=== PATIENT | female | born 1955 | race Caucasian/White ===

== ENCOUNTER → 2018-01-31 10:27 | Outpatient (CLI) | payer OTHER, SELFPAY ==
--- NOTE | 2018-01-31 10:31 | US_ITS ---
STUDY: THYROID ULTRASOUND REASON FOR EXAM: Female, 62 years old. Nodules TECHNIQUE: Ultrasound evaluation of the thyroid was performed with real-time and static pickering-scale imaging. COMPARISON: 03/13/2017. FINDINGS: RIGHT LOBE: The right lobe of the thyroid gland measures 6.7 x 2.1 x 2.4 cm. There is a heterogeneous echotexture. There are numerous nodules that are grossly stable. Largest is 1.2 cm which is similar to prior exam. LEFT LOBE: The left lobe of the thyroid gland measures 6.8 x 2.4 x 2.6 cm. There is a heterogeneous echotexture. There are numerous nodules that are grossly stable. Largest is 1.4 cm which is similar to prior exam. ISTHMUS: The isthmus measures 8 mm . The regional lymph nodes are normal. US/Thyroid IMPRESSION: Diffusely enlarged and heterogeneous thyroid with numerous nodules consistent with relatively stable multinodular goiter. Electronically Signed: Shree Turner MD at 17:09 EDT , Service support ,
== END ==
PROVIDERS: Family Provider Nurse Practitioner; PCP Nurse Practitioner; Visit Provider Nurse Practitioner
DX: E04.1 Nontoxic single thyroid nodule (principal)
CPT/HCPCS: 76536

== ENCOUNTER → 2018-03-14 09:30 | Outpatient (CLI) | payer OTHER, SELFPAY ==
--- NOTE | 2018-03-14 09:31 | BD_ITS ---
STUDY: DUAL ENERGY X-RAY ABSORPTIOMETRY / DXA REASON FOR EXAM: Female, 62 years old. The patient is postmenopausal. Loss of height. TECHNIQUE: Bone Mineral Density (BMD) measurements of lumbar spine and bilateral hips were obtained. COMPARISON: Comparison is made with prior study dated February 01, 2010. FINDINGS: Lumbar Spine (L1-L4): g/cm2 (1.276) / T-score (0.9) / Z-score (2.4) Findings are suggestive of normal bone density with a low fracture risk. Left Femur Total: g/cm2 (1.040) / T-score (0.3) / Z-score (1.4) Left Femoral Neck: g/cm2 (1.023) / T-score (-0.1) / Z-score (1.3) Right Femur Total: g/cm2 (1.024) / T-score (0.1) / Z-score (1.2) Right Femoral Neck: g/cm2 (1.050) / T-score (0.1) / Z-score (1.5) The T-Scores on the most recent prior examination were: Lumbar Spine (L1-L4): There has been worsening of bone density since the previous examination. Left Femur Total: which represents a worsening of 7.9%. Right Femur Total: which represents a worsening of 6.9%. BD/Dexa Bone Density Study IMPRESSION: The patient is considered normal as outlined below according to World Ron[place] Organization (WHO) criteria with a low fracture risk. There has been worsening of bone density since the previous examination. Reference Information: The T-score is the number of standard deviations above or below the standard which is normal for young adults at their peak bone mineral density. The World Health Organization (WHO) interprets the T-scores as follows: Above -1 Normal bone density Between -1 and -2.5 Osteopenia Equal to / or below -2.5 Osteoporosis As a practical clinical guideline, osteopenia may be graded as follows: Mild -1 through -1.5 Moderate -1.6 through -2.0 Severe -2.1 through -2.4 The Z-score is the number of standard deviations above or below age-matched controls. A Z-score of less than -1.5 would be considered abnormal. References: 1. NIH Osteoporosis and Related Bone Diseases http://www.osteo.org 2. International Society for Clinical Densitometry http://www.iscd.org 3. National Osteoporosis Foundation http://www.nof.org Electronically Signed: Uriel Fox MD at 15:24 EDT Tel [phone], Service support ,
--- NOTE | 2018-03-14 09:32 | BI_ITS ---
MAMMOGRAPHY - BILATERAL SCREENING REASON FOR EXAM: Female, 62 years old. Routine annual screening examination. PERTINENT HISTORY: Non-contributory. TECHNIQUE: Digital bilateral breast laine (3D mammographic acquisition) in the CC and MLO projections. 2-D mediolateral oblique (MLO) and craniocaudad (CC) views of both breasts were obtained. CAD: Full Field Digital Mammography with Computer Added Detection was performed. COMPARISON: Comparison is made with prior study dated March 13, 2017 and March 08, 2016. FINDINGS: Breast Composition: There are scattered areas of fibroglandular density. There are no dominant masses or suspicious calcifications. No other significant abnormalities are identified. There has been no significant change since the prior study. BI/SCREENING MAMM (CAD), BILAT IMPRESSION: Stable bilateral screening mammogram. Yearly follow-up mammogram recommended. (A) ASSESSMENT CATEGORY: BIRADS Category 1: Negative. A letter regarding these results will be sent to the patient by the facility within 30 days. Approximately 10% of breast cancers are not detected by mammography. A normal mammogram should not delay biopsy of a clinically suspicious abnormality. [id number] Electronically Signed: Uriel Fox MD at 14:03 EDT Tel [phone], Service support ,
== END ==
PROVIDERS: Family Provider Nurse Practitioner; PCP Nurse Practitioner; Visit Provider Nurse Practitioner
DX: Z12.31 Encounter for screening mammogram for malignant neoplasm of breast (principal); Z78.0 Asymptomatic menopausal state
CPT/HCPCS: 77063; 77067; 77080

== ENCOUNTER 2018-07-15 10:39 | Observation (INO) | payer OTHER, SELFPAY ==
[2018-06-25 10:20] VITALS: BP 143/76; PULSE 60; RESP 16; TEMP 36.8; O2SAT 97; BMI 33.7
--- NOTE | 2018-06-25 10:37 | SDCEKG_ITS ---
Test Reason : Blood Pressure : / mmHG Vent. Rate : 062 BPM Atrial Rate : 062 BPM P-R Int : 170 ms QRS Dur : 092 ms QT Int : 420 ms P-R-T Axes : 039 -18 012 degrees QTc Int : 426 ms Normal sinus rhythm Minimal voltage criteria for LVH, may be normal variant Borderline ECG Confirmed by BASHIR MATIAS, JEANNETTE ([id number]), publications editor KATIE GUTIERRES ([id number]) on 06/28/2018 2:39:41 PM Referred By: Edy Hugo Confirmed By:JEANNETTE CAMEJO MD
[2018-06-25 12:41] LABS: Absolute Lymphocyte Count 1.63 X10^3/ul (0.83-4.51); Absolute Neutrophil Count 2.7 X10^3/uL (2.0-7.7); Basophil# 0.03 X10^3/uL; Basophil% 0.6 % (0-1); Eosinophil# 0.06 X10^3/uL; Eosinophils% 1.2 % (0-5); Hematocrit 43.3 % (37-47); Hemoglobin 14.2 g/dl (12.0-15.0); Lymphocyte # 1.63 X10^3/ul (4.0); Lymphocyte % 32.9 % (19-41); Mean Corp Hgb Conc 32.8 g/gl (32-36); Mean Corpuscular Hgb 31.7 pg (27.0-32.0); Mean Corpuscular Volume 96.7 fL (81-99); Mean Platelet Vol. 9.9 fl (6.2-12.0); Monocyte# 0.54 X10^3/uL; Monocyte% 10.9 % (0-10); Neutrophil % 54.4 % (47-70); Platelet Count 177 K/mm3 (150-450); RBC Distribution Width CV 13.2 % (11.6-14.6); RBC Distribution Width SD 46.3 fl (35.1-43.9); Red Blood Count 4.48 M/mm3 (4.2-5.4)
[2018-06-25 12:46] LABS: POSITIVE COUNT NO; POSITIVE DIFFERENTIAL NO; POSITIVE MORPHOLOGY NO
[2018-06-25 13:23] LABS: Anion Gap 8 (5-15); BUN 13 mg/dL (7-18); BUN/Creat Ratio 13.8 RATIO (10-20); Calcium,Total 9.6 mg/dL (8.5-10.1); Chloride 105 mmol/L (98-107); Creatinine, Serum 0.94 mg/dL (0.55-1.02); EST Glomerular Filtration Rate 64 mL/min (>60); Est Glom Filt Rate - Afr Amer 77 mL/min (>60); Estimated Creatinine Clearance 54.41 ml/min; Glucose 85 mg/dL (74-106); Potassium 4.3 mmol/L (3.5-5.1); Sodium Level 143 mmol/L (136-145); Thyroid Stim Hormone (TSH) 1.72 uIU/mL (0.358-3.74)
[2018-07-15] VITALS (9 sets, daily range): BP systolic 98–134; BP diastolic 49–77; PULSE 59–77; RESP 14–18; TEMP 36.2–36.9; O2SAT 95–98; BMI 33.7; BMI 33.6
--- NOTE | 2018-07-15 | KNEE_PTH ---
PATIENT: CHANDRIKA VEGA LOC: [facility] U#:[id number] AGE/SX: 63/F ROOM: [facility]315 RE07/15/[address]: Dr. Edy Hugo DO : 1955 BED: 1 DIS: 07/16/2018 SPEC #: [id number] RECD: 07/15/18 13:28 STATUS: KARI REBrandyn #: [id number] NICOLA: 07/15/18 00:[address]: Edy Hugo DEPT: SURGICAL PATHOLOGY RECD BY: Forest Phillips ENTERED: 07/15/18 13:29 SP TYPE: TOTAL KNEE OTHR DR: Juanis Garnett, TELEVISION NEWS VIDEO EDITOR-C Tissues: Knee, NOS Procedures: Decalcification bone/plaque Surgery Specimen Level IV HEADER OPERATION: Right total knee replacement, left intra-articular knee injection PRE-OP DIAGNOSIS: Unilateral primary osteoarthritis right knee TISSUE SUBMITTED: Right knee bone MICROSCOPIC DIAGNOSIS Bone and soft tissue, right knee, total knee replacement/resection: Pieces of bone with degenerative osteoarthritic changes. Fibroadipose tissue, fibroconnective tissue and reactive synovial tissue. SJ:blaise 07/17/18 MICROSCOPIC DESCRIPTION Slides are reviewed. GROSS DESCRIPTION Received is one container designated bone and soft tissue right knee. The specimen consists of multiple fragments of gee-yellow bone measuring in aggregate 12 x 10.5 x 2.5 cm. Also in the specimen container are multiple fragments of yellow-white soft tissue measuring in aggregate 9 x 8 x 2 cm. A number of bony fragments contain articular surfaces consistent with tibial plateau and femoral condyle and displaying prominent osteophyte formation, eburnation, and bone erosion. Global Manager sections are submitted in two cassettes as follows: 1 - soft tissue, 2 - bone after decalcification. / AM:blaise 07/15/18 TC:5 CPT: 10209, 24762
[2018-07-15] MEDS: Acetaminophen 500 MG Tablet 1000 MG PO ×3 (06:11→21:46)
[2018-07-15] MEDS: oxyCODONE HCl Cr 10 MG Tablet PO (06:11)
[2018-07-15] MEDS: Celecoxib 200 MG Capsule 400 MG PO (06:11)
[2018-07-15] MEDS: Lactated Ringers 1,000 ML 999 ML IV (06:40)
[2018-07-15] MEDS: Cefazolin 2 GM in 0.9% Normal Saline 100 ML IV (07:15)
--- NOTE | 2018-07-15 08:37 | OP.PN_ITS ---
Immediate Post-Op Note Date of Procedure: 07/15/18 Primary Surgeon/Physician: Edy Hugo district commercial superintendent: Malik Vega Pre-Operative Diagnosis: OA right knee Post-Operative Diagnosis: same Surgery/Procedure Performed:: right TKR Description of Surgical Findings:: see op note Estimated Blood Loss: 25cc Specimen's removed: bone Type of Anesthesia:: Spinal/Supplemental ASA Class: ASA2 Mod Systematic Disease - Admit VTE Documentation VTE Present on Admission: No VTE Mechan Device Prophylaxis: SCD's, Thigh High MADELAINE Hose VTE Pharm Prophylaxis ordered?: Yes
--- NOTE | 2018-07-15 08:38 | PCM.OP.BLANK ---
Operative Report Date of Procedure: 07/15/18 Primary Surgeon/Physician: Edy Hugo nocturnist: Malik Vega PA-C nocturnist: Pre-Operative Diagnosis: OA right knee Post-Operative Diagnosis: same Surgery/Procedure Performed: Right TKR Estimated Blood Loss: 25cc Specimen's Removed: bone Type of Anesthesia: spinal ASA Class: 2 Implants: [Mansi Triathlon size 4 femur, size 4 tibia, 9 mm PS polyethylene spacer, 35 mm patella ] Indications: Patient has severe end-stage osteoarthritis diagnosed via x-rays in the knee. They have failed all forms of conservative measures including activity modification, injections, anti-inflammatories, use of assistive device. The patient has pain that affects on a daily basis and prevents him from doing things that they enjoyed. They have elected to undergo the above procedure. The risks of the procedure were discussed at length and their questions were answered. Procedure Description: The patient was greeted in the preoperative area. The [right ] knee was then marked with a surgical marker. Patient was then taken to or Suite 2. They were administered a dose of antibiotics as well as tranexamic acid. Once adequate anesthesia was obtained and airway was secured to placed in supine position on the operating room table. A well-padded tourniquet was placed on the affected extremity. Leg was then prepped and draped in the usual sterile fashion from the knee down. Ioban was used on the skin. Surgical timeout was then performed and confirmed with all present. Six-inch Esmarch was used to examine the limb and tourniquet was then inflated to 250 mmHg. A longitudinal incision was then planned and carried out in the anterior aspect of the knee. The dissection was then carried the length of the incision the extensor mechanism was identified. Standard medial parapatellar arthrotomy was then performed revealing severe eburnation of bone and periarticular osteophytes. There is complete loss of cartilage especially in the medial compartment with varus alignment. Anterior fat pad was removed for visualization purposes and the anterior medial aspect of the tibia was skeletonized for exposure to the knee. The knee was then flexed the patella was inverted. Opening reamer was then used in the femur approximately 1 cm anterior to the attachment of the PCL. The intramedullary valgus wand was then placed in the femur set at 5? of valgus. The distal femoral cutting jig was then applied to the femur with anticipated resection of approximately 8 mm. This was then made with a oscillating saw. The sizing guide was then placed referencing off the posterior condyles and also reference off the epicondylar axis. This was measured and the appropriate size 4-in-1 cutting jig was then applied to the distal femur. Anterior posterior cuts were made followed by the anterior and posterior chamfer cuts. These bony pieces and fragments were removed and placed on the back table. Posterior retractor was then utilized and the tibia was subluxed anteriorly. Extramedullary tibial alignment jig was then applied to the tibia referencing off the medial one third of the tibial tubercle the anterior tibial spine the middle aspect of the tibiotalar joint. Also reference off patient's [place] band slope. The tibial cutting jig was then pinned with anticipated resection of 2 mm off of the deficient medial tibial condyle. This cut was made with the oscillating saw. Once this was complete a laminar environmental technical officer was utilized in both medial lateral meniscus were removed and a posterior capsular osteophytes were also removed. Posterior capsule release was performed in the posterior capsule as well as the geniculate arteries are treated with the aqua Rubén. The tibia was incised and the appropriate sized tibial tray was then pinned. The femoral box cutting jig was then applied to the femur and the box was prepared removing a portion of the intercondylar notch. The femoral trial was then placed and the knee was trialed. Full flexion-extension were easily achieved. The knee seemed to balance quite nicely. Any remaining osteophytes were removed at this time. Once this was complete the patella was everted and the Norberto patella reaming device was then utilized the patella was then placed in the appropriate jig and reamer was then used to remove approximately 9 mm of the undersurface of the patella. A soft tissue remaining was in the way was removed and patella trial was then placed listed maintain excellent tracking using the no thumbs technique. The tibial tray at this point was punched to accommodate the fins of the final implant. At this point cement was mixed on the back table. The trial components were removed and the knee was copiously irrigated. Did use a cocktail of injection for postoperative pain control. The final components were then cemented in the standard fashion and excess cement was removed with cement removal tools and patellar clamp is placed in the patella. As the cement had cured in full extension tourniquet was deflated and hemostasis was perfect with Bovie cautery as well as the aqua Manus. Needle is once again trialed with different size polyethylenes to ensure the full range of motion was achieved as well as excellent balancing ligamentously was achieved. At this point the knee was copiously irrigated. Final implant was then inserted locking mechanism was engaged and confirmed to be locked. The arthrotomy was then closed with #1 Vicryl aggravate type fashion interrupted. Subcutaneous tissue was closed with 0 Vicryl and surgical erna were placed in the skin. A occlusive silver impregnated dressing was then applied followed by well-padded sterile dressing secured with an Romario wrap. The patient was taken to the PACU in stable condition. No complications known at this time. Postoperatively we will maintain standard total knee postoperative protocol. The use of the physician assistant drafter was integral during this procedure. They assisted with positioning placement of the tourniquet retracting closure and placement of the dressing. The procedure would have been much more difficult without their expertise and assistance
[2018-07-15] MEDS: Betamethasone/Betamethasone 30 MG/5 ML Vial (08:39)
--- NOTE | 2018-07-15 08:42 | OP.PCM_ITS ---
Operative Report Date of Procedure: 07/15/18 Primary Surgeon/Physician: Edy Hugo vice president of recruiting: Malik Vega PA-C vice president of recruiting: Pre-Operative Diagnosis: OA right knee Post-Operative Diagnosis: same Surgery/Procedure Performed: Right TKR Estimated Blood Loss: 25cc Specimen's Removed: bone Type of Anesthesia: spinal ASA Class: 2 Implants: [Mansi Triathlon size 4 femur, size 4 tibia, 9 mm PS polyethylene spacer, 35 mm patella ] Indications: Patient has severe end-stage osteoarthritis diagnosed via x-rays in the knee. They have failed all forms of conservative measures including activity modification, injections, anti-inflammatories, use of assistive device. The patient has pain that affects on a daily basis and prevents him from doing things that they enjoyed. They have elected to undergo the above procedure. The risks of the procedure were discussed at length and their questions were answered. Procedure Description: The patient was greeted in the preoperative area. The [right ] knee was then marked with a surgical marker. Patient was then taken to or Suite 2. They were administered a dose of antibiotics as well as tranexamic acid. Once adequate anesthesia was obtained and airway was secured to placed in supine position on the operating room table. A well-padded tourniquet was placed on the affected extremity. Leg was then prepped and draped in the usual sterile fashion from the knee down. Ioban was used on the skin. Surgical timeout was then performed and confirmed with all present. Six-inch Esmarch was used to examine the limb and tourniquet was then inflated to 250 mmHg. A longitudinal incision was then planned and carried out in the anterior aspect of the knee. The dissection was then carried the length of the incision the extensor mechanism was identified. Standard medial parapatellar arthrotomy was then performed revealing severe eburnation of bone and periarticular osteophytes. There is complete loss of cartilage especially in the medial compartment with varus alignment. Anterior fat pad was removed for visualization purposes and the anterior medial aspect of the tibia was skeletonized for exposure to the knee. The knee was then flexed the patella was inverted. Opening reamer was then used in the femur approximately 1 cm anterior to the attachment of the PCL. The intramedullary valgus wand was then placed in the femur set at 5? of valgus. The distal femoral cutting jig was then applied to the femur with anticipated resection of approximately 8 mm. This was then made with a oscillating saw. The sizing guide was then placed referencing off the posterior condyles and also reference off the epicondylar axis. This was measured and the appropriate size 4-in-1 cutting jig was then applied to the distal femur. Anterior posterior cuts were made followed by the anterior and posterior chamfer cuts. These bony pieces and fragments were removed and placed on the back table. Posterior retractor was then utilized and the tibia was subluxed anteriorly. Extramedullary tibial alignment jig was then applied to the tibia referencing off the medial one third of the tibial tubercle the anterior tibial spine the middle aspect of the tibiotalar joint. Also reference off patient's [place] slope. The tibial cutting jig was then pinned with anticipated resection of 2 mm off of the deficient medial tibial condyle. This cut was made with the oscillating saw. Once this was complete a laminar consultant luxury and auto. vice president jaguar brand (ex ) was utilized in both medial lateral meniscus were removed and a posterior capsular osteophytes were also removed. Posterior capsule release was performed in the posterior capsule as well as the geniculate arteries are treated with the aqua Rubén. The tibia was incised and the appropriate sized tibial tray was then pinned. The femoral box cutting jig was then applied to the femur and the box was prepared removing a portion of the intercondylar notch. The femoral trial was then placed and the knee was trialed. Full flexion-extension were easily achieved. The knee seemed to balance quite nicely. Any remaining osteophytes were removed at this time. Once this was complete the patella was everted and the Norberto patella reaming device was then utilized the patella was then placed in the appropriate jig and reamer was then used to remove approximately 9 mm of the undersurface of the patella. A soft tissue remaining was in the way was removed and patella trial was then placed listed maintain excellent tracking using the no thumbs technique. The tibial tray at this point was punched to accommodate the fins of the final implant. At this point cement was mixed on the back table. The trial components were removed and the knee was copiously irrigated. Did use a cocktail of injection for postoperative pain control. The final components were then cemented in the standard fashion and excess cement was removed with cement removal tools and patellar clamp is placed in the patella. As the cement had cured in full extension tourniquet was deflated and hemostasis was perfect with Bovie cautery as well as the aqua Manus. Needle is once again trialed with different size polyethylenes to ensure the full range of motion was achieved as well as excellent balancing ligamentously was achieved. At this point the knee was copiously irrigated. Final implant was then inserted locking mechanism was engaged and confirmed to be locked. The arthrotomy was then closed with #1 Vicryl aggravate type fashion interrupted. Subcutaneous tissue was closed with 0 Vicryl and surgical erna were placed in the skin. A occlusive silver impregnated dressing was then applied followed by well-padded sterile dressing secured with an Romario wrap. The patient was taken to the PACU in stable condition. No complications known at this time. Postoperatively we will maintain standard total knee postoperative protocol. The use of the physician medical claims assistant was integral during this procedure. They assisted with positioning placement of the tourniquet retracting closure and placement of the dressing. The procedure would have been much more difficult without their expertise and assistance
[2018-07-15] MEDS: Senna/Docusate Sodium 1 Tablet 2 TABLET PO ×2 (14:29→21:47)
[2018-07-15] MEDS: Cefazolin 1 GM/50 ML BAG IV ×2 (14:39→22:27)
[2018-07-15] MEDS: Aspirin 325 MG Tablet PO (16:47)
[2018-07-15] MEDS: Atorvastatin Calcium 10 MG Tablet PO (21:46)
[2018-07-15] MEDS: Levothyroxine 100 MCG Tablet PO (21:46)
[2018-07-16 02:22] VITALS: BP 105/61; PULSE 61; RESP 16; TEMP 36.7; O2SAT 94
[2018-07-16] MEDS: Acetaminophen 500 MG Tablet 1000 MG PO ×2 (05:47→14:01)
[2018-07-16 06:01] LABS: Hematocrit 36.6 % (37-47); Hemoglobin 12.5 g/dl (12.0-15.0); Mean Corp Hgb Conc 34.2 g/gl (32-36); Mean Corpuscular Hgb 32.4 pg (27.0-32.0); Mean Corpuscular Volume 94.8 fL (81-99); Mean Platelet Vol. 9.6 fl (6.2-12.0); Platelet Count 165 K/mm3 (150-450); RBC Distribution Width CV 12.9 % (11.6-14.6); RBC Distribution Width SD 43.3 fl (35.1-43.9); Red Blood Count 3.86 M/mm3 (4.2-5.4); White Blood Count 11.3 K/mm3 (4.4-11.0)
[2018-07-16 06:08] LABS: Scan Indicated on CBC? Y/N NO
[2018-07-16 06:10] LABS: Anion Gap 8 (5-15); BUN 13 mg/dL (7-18); BUN/Creat Ratio 14.7 RATIO (10-20); Calcium,Total 8.6 mg/dL (8.5-10.1); Chloride 110 mmol/L (98-107); Creatinine, Serum 0.89 mg/dL (0.55-1.02); EST Glomerular Filtration Rate 68 mL/min (>60); Est Glom Filt Rate - Afr Amer 83 mL/min (>60); Estimated Creatinine Clearance 57.46 ml/min; Glucose 139 mg/dL (74-106); Sodium Level 142 mmol/L (136-145)
--- NOTE | 2018-07-16 07:47 | PN.ORTHO_ITS ---
Subjective: Patient sitting at bedside eating breakfast. Patient's pain is well managed. Patient denies chest pain, shortness breath, calf pain, nausea vomiting. Patient states ready for discharge home Objective: Dressings clean dry intact. Negative signs or symptoms of DVT. Vital sign labs within normal limits. Patient is afebrile neurovascular is otherwise intact. No respiratory distress, speaking in full sentences. - Physical Exam General: Alert, Oriented x3, Cooperative HEENT: PERRLA Oral: Moist Mucosa Neurological: Cranial nerves II-XII grossly intact Psych/Mental Status: Normal Affect, Alert and oriented to time, place, person, mood and affect Vital Signs Temp Pulse Resp BP Pulse Ox 98.1 F 61 16 105/61 94 07/16/18 02:22 07/16/18 02:22 07/16/18 02:22 07/16/18 02:22 07/16/18 02:22 Oxygen Delivery Method Room Air Weight: 91.6 kg Body Mass Index (BMI) 33.6 Intake and Output for Last 24 Hours 07/14/18 07/15/18 07/16/18 23:59 23:59 23:59 Intake Total 3645 / 3645 667 / 667 Balance 3645 / 3645 667 / 667 Laboratory Tests Past 24 Hrs 07/16/18 07/16/18 05:30 05:30 WBC 11.3 H RBC 3.86 L Hgb 12.5 Hct 36.6 L MCV 94.8 MCH 32.4 H MCHC 34.2 RDW 12.9 RDW Differential 43.3 Plt Count 165 MPV 9.6 Sodium 142 Potassium 4.0 Chloride 110 H Carbon Dioxide 24.0 Anion Gap 8 BUN 13 Creatinine 0.89 Estim Creat Clear Calc 57.46 Est GFR (MDRD) Af Amer 83 Est GFR (MDRD) Non-Af 68 BUN/Creatinine Ratio 14.7 Glucose 139 H Calcium 8.6 Medical Necessity - Tobacco Use Smoking Status: Never smoker Assessment/Plan Status post right total knee Plan 1. Continue all pain medications as prescribed 2. Continue physical therapy today weightbearing as tolerated with walker. 3. Aspirin 325 mg 1 p.o. every 12 hours times 30 days for postop DVT prophylaxis 4. Encourage incentive spirometry 5. Follow-up as scheduled, see pink sheet 6. Continue physical therapy upon discharge, at [facility] [place] 7. Discharge home today after p.m. therapy
--- NOTE | 2018-07-16 07:51 | DCINST_ITS ---
Discharge Diet: No Restrictions Discharge Activity: May Not Drive, May Shower, Use Walker May shower in (days): 2 Ice area for (Minutes): 20 - each hour while awake. Weight Bearing Status: Weight bearing as tolerated Elevate: Operative Extremity Additional Activity Instructions:: Wear elastic stockings for 2 weeks after your surgery. Call your doctor if your incision/area has: Continuous Slow Oozing, Sudden Increased Bleeding, Increased Pain/ Swelling, Increased Redness, Foul Smelling Discharge Call your doctor if you observe: Fever of 101 or Higher, Coldness, Increased Pain - in extremity, Numbness or Tingling, Change in Color, Calf discomfort, Uncontrolled pain Change Dressing in (Days):: 0 - and daily as needed. Remove Dressing in (days):: 8 Cleanse incision/area with: Soap & Water Allergies/Adverse Reactions: Allergies No Known Allergies Allergy (Verified 06/25/18 10:13) Medications to take at Discharge Ascorbic Acid [Vitamin C] 500 mg PO DAILY 06/25/18 Calcium Carbonate/Vitamin D3 [Calcium 600-Vit D3 200 Tablet] 1 each PO DAILY 06/25/18 Cholecalciferol (VIT D3) [Vitamin D3] 3 tab PO DAILY 06/25/18 Levothyroxine Sodium [Synthroid] 100 mcg PO QHS 06/25/18 Multivit-Min/FA/Lycopen/Lutein [Centrum Silver Tablet] 1 each PO DAILY 06/25/18 [place]-3 Fatty Acids/Fish Oil [[place] 3 1,000 mg Softgel] 1 each PO DAILY 06/25/18 Simvastatin [Zocor] 20 mg PO QHS 06/25/18 Vitamin E 400 unit PO DAILY 06/25/18 Acetaminophen [Tylenol] 1,000 mg PO Q8 #90 tab 07/16/18 Aspirin 325 mg PO BIDCM #60 tab 07/16/18 Oxycodone [Oxyir] 5 - 10 mg PO Q4H PRN PRN 7 Days #90 tab 07/16/18 The following prescriptions were given: Oxycodone [Oxyir] 5 - 10 mg PO Q4H PRN PRN 7 Days #90 tab PRN Reason: Mod-Severe Pain (4-10/10) Acetaminophen [Tylenol] 1,000 mg PO Q8 #90 tab Aspirin 325 mg PO BIDCM #60 tab Primary Care Physician: Juanis Garnett NP-C [Primary Care Provider] - Test Results: Test results from this visit will be discussed in further detail at your follow- up appointment, if applicable. Please Follow Up With: Edy Hugo, When: as scheuled (see pink sheet)
[2018-07-16] MEDS: Senna/Docusate Sodium 1 Tablet 2 TABLET PO (08:14)
[2018-07-16] MEDS: Aspirin 325 MG Tablet PO (08:14)
[2018-07-16 08:29] VITALS: BP 122/60; PULSE 62; RESP 16; TEMP 36.7; O2SAT 96
--- NOTE | 2018-07-16 10:15 | CASEMGMT ---
RN JEFFERY Face to Face with patient for initial transition planning/care coordination assessment. RN JEFFERY introduced self and role at [facility]. Patient lying in bed, alert and oriented. Patient willing to participate in assessment and is able to answer all questions appropriately. Care providers, pharmacy, and demographics verified. Patient wishes to discharge home, and is setup with [facility] for outpatient therapy with providing transportation. Patient states she has no further needs or concerns at this time. CM to follow for discharge planning needs that may arise. PCP: Juanis Garnett [employer] Specialists: None Preferred Pharmacy: [facility] Insurance: MMO Prescription Benefit: MMO Living Will/HPOA: Yes, Sunday Veloz LNOK: Living Arrangements: Patient lives with in 1 story home with 2 steps to enter the home. Transportation: DME/HHC: Patient has raised toilet seat and walker at home. Disposition Plan: Patient to discharge home with outpatient therapy, family support, and follow-up plans in place. Araseli MARQUEZ, RN, CM
[2018-07-16] MEDS: oxyCODONE 5 MG Tablet PO (14:01)
[2018-07-16 14:07] VITALS: BP 139/67; PULSE 60; RESP 16; TEMP 36.5
--- OUTSIDE RECORDS SUMMARY | 2018-09-07 03:44 | XMS RPT_ITS ---
:1955 Author Organization OHIP Care Team Providers Name Role Phone Mariola Juanis Attending Unavailable Juanis Garnett Referring Unavailable Juanis Garnett Primary Care Unavailable Juanis Garnett Attending Unavailable Juanis Garnett Primary Care Unavailable Kwame Ross Attending Unavailable Juanis Garnett Referring Unavailable Edy Hugo Admitting Unavailable Edy Hugo Attending Unavailable Juanis Garnett Primary Care Unavailable Edy Hugo Referring Unavailable Irineo Britt Attending Unavailable Edy Hugo Referring Unavailable PROBLEMS PROBLEMS DATE TYPE CONDITION / CODE ATTENDING STATUS SOURCE 07/16/2018 Unknown G89.18 - Other acute Edy Hugo Active [place] postprocedural pain Community / G89.18(ICD-10) Hospital Repository 07/03/2018 Unknown Z01.810 - Encounter Irineo Britt Active [place] for preprocedural [facility] cardiovascular Hospital examination / Repository Z01.810(ICD-10) 03/14/2018 Unknown Z12.31 - Encounter Juanis Garnett Active [place] for screening [facility] mammogram for Hospital malignant neoplasm Repository of breast / Z12.31(ICD-10) 03/14/2018 Unknown Z78.0 - Asymptomatic Juanis Garnett Active [place] menopausal state / Community Z78.0(ICD-10) Hospital Repository 01/31/2018 Unknown E04.1 - Nontoxic Juanis Garnett Active [place] single thyroid [facility] nodule / Hospital E04.1(ICD-10) Repository PROCEDURES PROCEDURES No Procedure Records FoundRESULTS RESULTS DISCHARGE INSTRUCTION Observed: 07/16/2018 Status: F Source: [place] 7:51 AM [facility] REPOSITORY [facility] Medical Records Department [address] [place] [address] Instructions for Home/Discharge Instructions 07/16/18 0750 MR#: [id number] Acct: [id number] Name: EBONIE VEGA Rep #: [id number] : 1955 63 From: Malik Vega PA-C PCP: Juanis Garnett NP Status: ADM SHARAD Discharge Diet: No Restrictions Discharge Activity: May Not Drive, May Shower, Use Walker May shower in (days): 2 Ice area for (Minutes): 20 - each hour while awake. Weight Bearing Status: Weight bearing as tolerated Elevate: Operative Extremity Additional Activity Instructions:: Wear elastic stockings for 2 weeks after your surgery. Call your doctor if your incision/area has: Continuous Slow Oozing, Sudden Increased Bleeding, Increased Pain/ Swelling, Increased Redness, Foul Smelling Discharge Call your doctor if you observe: Fever of 101 or Higher, Coldness, Increased Pain - in extremity, Numbness or Tingling, Change in Color, Calf discomfort, Uncontrolled pain Change Dressing in (Days):: 0 - and daily as needed. Remove Dressing in (days):: 8 Cleanse incision/area with: Soap AND Water Allergies/Adverse Reactions: Allergies No Known Allergies Allergy (Verified 06/25/18 10:13) Medications to take at Discharge Ascorbic Acid [Vitamin C] 500 mg PO DAILY 06/25/18 Calcium Carbonate/Vitamin D3 [Calcium 600-Vit D3 200 Tablet] 1 each PO DAILY 06/25/18 Cholecalciferol (VIT D3) [Vitamin D3] 3 tab PO DAILY 06/25/18 Levothyroxine Sodium [Synthroid] 100 mcg PO QHS 06/25/18 Multivit-Min/FA/Lycopen/Lutein [Centrum Silver Tablet] 1 each PO DAILY 06/25/18 Hebron-3 Fatty Acids/Fish Oil [Hebron 3 1,000 mg Softgel] 1 each PO DAILY 06/25/18 Simvastatin [Zocor] 20 mg PO QHS 06/25/18 Vitamin E 400 unit PO DAILY 06/25/18 Acetaminophen [Tylenol] 1,000 mg PO Q8 #90 tab 07/16/18 Aspirin 325 mg PO BIDCM #60 tab 07/16/18 Oxycodone [Oxyir] 5 - 10 mg PO Q4H PRN PRN 7 Days #90 tab 07/16/18 The following prescriptions were given: Oxycodone [Oxyir] 5 - 10 mg PO Q4H PRN PRN 7 Days #90 tab PRN Reason: Mod-Severe Pain (4-05/22) Acetaminophen [Tylenol] 1,000 mg PO Q8 #90 tab Aspirin 325 mg PO BIDCM #60 tab Primary Care Physician: Juanis Garnett NP-C [Primary Care Provider] - Test Results: Test results from this visit will be discussed in further detail at your follow-up appointment, if applicable. Please Follow Up With: Edy Hugo DO When: as scheuled (see pink sheet) 07/16/18 0751 <Electronically signed by Malik Vega PA-C> Date Malik Vega PA-C CC: Juanis Garnett NP CBC-COMPLETE BLOOD CNT Collected: 07/16/2018 Status: F Source: [place] NO DIFF 5:30 AM [facility] REPOSITORY TYPE CODE TESTS RESULT OUT OF RANGE REFERENCE UNITS LAB L100.1000 4.4-11.0 K/mm3 High WBC 11.3 LAB L100.1200 4.2-5.4 M/mm3 Low RBC 3.86 LAB L100.1300 12.0-15.0 g/dl Normal HGB 12.5 LAB L100.1400 37-47 % Low HCT 36.6 LAB L100.1500 81-99 fL Normal MCV 94.8 LAB L100.1600 27.0-32.0 pg High MCH 32.4 LAB L100.1700 32-36 g/gl Normal MCHC 34.2 LAB L100.1810 11.6-14.6 % Normal RDW CV 12.9 LAB L100.1820 35.1-43.9 fl Normal RDW SD 43.3 LAB L100.1900 150-450 K/mm3 Normal PLT 165 LAB L100.2000 6.2-12.0 fl Normal MPV 9.6 Performed By: #### L100.0500 #### [facility] [address] [place], [address] BASIC METABOLIC Collected: 07/16/2018 Status: F Source: [place] PROFILE (BMP) 5:30 AM [facility] REPOSITORY TYPE CODE TESTS RESULT OUT OF RANGE REFERENCE UNITS LAB L501.0100 74-106 mg/dL High GLU 139 Result Comment: Fasting Glucose result greater than or equal to 126 mg/dL suggests DIABETES MELLITUS per A.D.A. criteria. Please note revised GLUCOSE reference range effective 2017. LAB L501.1000 7-18 mg/dL Normal BUN 13 LAB L501.1100 0.55-1.02 mg/dL Normal CREAT,SERUM 0.89 Result Comment: The validity of the calculated GFR AND GFRAA in patients over 70 years has not been determined. Clinical correlation is essential. LAB L501.1110 >60 mL/min Normal EST GFR 68 Result Comment: Non- GFR Calc LAB L501.1115 >60 mL/min Normal EST GFR - AA 83 Result Comment: GFR Calc LAB L501.1255 ml/min Normal Estimated CRCL 57.46 LAB L501.1300 10-20 RATIO Normal BUN/CRE 14.7 LAB L501.2200 8.5-10 mg/dL Normal .1 CA 8.6 LAB L501.5300 136-14 mmol/L Normal 5 NA 142 LAB L501.5600 3.5-5. mmol/L Normal 1 K 4.0 LAB L501.5900 98-107 mmol/L High CL 110 LAB L501.6100 21.0-3 mmol/L Normal 2.0 CO2 24.0 LAB L501.6200 5-15 Normal GAP 8 Performed By: #### L500.2500 #### [facility] [address] [place], [address] OPERATIVE REPORT Observed: 07/15/2018 Status: F Source: [place] 8:42 AM [facility] REPOSITORY [facility] Medical Records Department [address] [place] [address] Operative Report 07/15/18 0838 MR#: [id number] Acct: [id number] Name: EBONIE VEGA Rep #: [id number] : 1955 63 From: Edy Hugo DO PCP: Juanis Garnett NP Status: REG [id number] Oper[facility] Report Date of Procedure: 07/15/18 Primary Surgeon/Physician: Edy Hugo pan shaker: Malik Vega PA-C pan shaker: Pre-Operative Diagnosis: OA right knee Post-Operative Diagnosis: same Surgery/Procedure Performed: Right TKR Estimated Blood Loss: 25cc Specimen's Removed: bone Type of Anesthesia: spinal ASA Class: 2 Implants: [Mansi Triathlon size 4 femur, size 4 tibia, 9 mm PS polyethylene spacer, 35 mm patella ] Indications: Patient has severe end-stage osteoarthritis diagnosed via x-rays in the knee. They have failed all forms of conservative measures including activity modification, injections, anti-inflammatories, use of assistive device. The patient has pain that affects on a daily basis and prevents him from doing things that they enjoyed. They have elected to undergo the above procedure. The risks of the procedure were discussed at length and their questions were answered. Procedure Description: The patient was greeted in the preoperative area. The [right ] knee was then marked with a surgical marker. Patient was then taken to or [address]. They were administered a dose of antibiotics as well as tranexamic acid. Once adequate anesthesia was obtained and airway was secured to placed in supine position on the operating room table. A well-padded tourniquet was placed on the affected extremity. Leg was then prepped and draped in the usual sterile fashion from the knee down. Ioban was used on the skin. Surgical timeout was then performed and confirmed with all present. Six-inch Esmarch was used to examine the limb and tourniquet was then inflated to 250 mmHg. A longitudinal incision was then planned and carried out in the anterior aspect of the knee. The dissection was then carried the length of the incision the extensor mechanism was identified. Standard medial parapatellar arthrotomy was then performed revealing severe eburnation of bone and periarticular osteophytes. There is complete loss of cartilage especially in the medial compartment with varus alignment. Anterior fat pad was removed for visualization purposes and the anterior medial aspect of the tibia was skeletonized for exposure to the knee. The knee was then flexed the patella was inverted. Opening reamer was then used in the femur approximately 1 cm anterior to the attachment of the PCL. The intramedullary valgus wand was then placed in the femur set at 5 of valgus. The distal femoral cutting jig was then applied to the femur with anticipated resection of approximately 8 mm. This was then made with a oscillating saw. The sizing guide was then placed referencing off the posterior condyles and also reference off the epicondylar axis. This was measured and the appropriate size 4-in-1 cutting jig was then applied to the distal femur. Anterior posterior cuts were made followed by the anterior and posterior chamfer cuts. These bony pieces and fragments were removed and placed on the back table. Posterior retractor was then utilized and the tibia was subluxed anteriorly. Extramedullary tibial alignment jig was then applied to the tibia referencing off the medial one third of the tibial tubercle the anterior tibial spine the middle aspect of the tibiotalar joint. Also reference off patient's [place] slope. The tibial cutting jig was then pinned with anticipated resection of 2 mm off of the deficient medial tibial condyle. This cut was made with the oscillating saw. Once this was complete a laminar aircraft structural repair mechanic was utilized in both medial lateral meniscus were removed and a posterior capsular osteophytes were also removed. Posterior capsule release was performed in the posterior capsule as well as the geniculate arteries are treated with the aqua Rubén. The tibia was incised and the appropriate sized tibial tray was then pinned. The femoral box cutting jig was then applied to the femur and the box was prepared removing a portion of the intercondylar notch. The femoral trial was then placed and the knee was trialed. Full flexion-extension were easily achieved. The knee seemed to balance quite nicely. Any remaining osteophytes were removed at this time. Once this was complete the patella was everted and the Norberto patella reaming device was then utilized the patella was then placed in the appropriate jig and reamer was then used to remove approximately 9 mm of the undersurface of the patella. A soft tissue remaining was in the way was removed and patella trial was then placed listed maintain excellent tracking using the no thumbs technique. The tibial tray at this point was punched to accommodate the fins of the final implant. At this point cement was mixed on the back table. The trial components were removed and the knee was copiously irrigated. Did use a cocktail of injection for postoperative pain control. The final components were then cemented in the standard fashion and excess cement was removed with cement removal tools and patellar clamp is placed in the patella. As the cement had cured in full extension tourniquet was deflated and hemostasis was perfect with Bovie cautery as well as the aqua Manus. Needle is once again trialed with different size polyethylenes to ensure the full range of motion was achieved as well as excellent balancing ligamentously was achieved. At this point the knee was copiously irrigated. Final implant was then inserted locking mechanism was engaged and confirmed to be locked. The arthrotomy was then closed with #1 Vicryl aggravate type fashion interrupted. Subcutaneous tissue was closed with 0 Vicryl and surgical erna were placed in the skin. A occlusive silver impregnated dressing was then applied followed by well-padded sterile dressing secured with an Romario wrap. The patient was taken to the PACU in stable condition. No complications known at this time. Postoperatively we will maintain standard total knee postoperative protocol. The use of the physician library media assistant was integral during this procedure. They assisted with positioning placement of the tourniquet retracting closure and placement of the dressing. The procedure would have been much more difficult without their expertise and assistance 07/15/18 0842 <Electronically signed by Edy Hugo DO> Date Edy Hugo DO CC: Juanis Garnett DOCUMENT PREPARER MICROFILMING; Edy Hugo DO Signed TOTAL KNEE REPLACEMENT Observed: 07/15/2018 Status: F Source: [place] 12:00 AM [facility] REPOSITORY Patient: EBONIE VEGA : 1955 (63/F) Acct Num: [id number] Phys: Edy Hugo DO Unit Num: [id number] Loc: MS3 [id number] Specimen: [id number] Received: 07/15/18 - 8 Spec Type: TOTAL KNEE TISSUES 1 TISSUES: Knee, NOS GROSS DESCRIPTION Received is one container designated bone and soft tissue right knee. The specimen consists of multiple fragments of gee-yellow bone measuring in aggregate 12 x 10.5 x 2.5 cm. Also in the specimen container are multiple fragments of yellow-white soft tissue measuring in aggregate 9 x 8 x 2 cm. A number of bony fragments contain articular surfaces consistent with tibial plateau and femoral condyle and displaying prominent osteophyte formation, eburnation, and bone erosion. Animal Breeder sections are submitted in two cassettes as follows: 1 - soft tissue, 2 - bone after decalcification. / AM:blaise 07/15/18 TC:5 CPT: 27054, 79738 HEADER OPERATION: Right total knee replacement, left intra-articular knee injection PRE-OP DIAGNOSIS: Unilateral primary osteoarthritis right knee TISSUE SUBMITTED: Right knee bone MICROSCOPIC DESCRIPTION Slides are reviewed. MICROSCOPIC DIAGNOSIS Bone and soft tissue, right knee, total knee replacement/resection: Pieces of bone with degenerative osteoarthritic changes. Fibroadipose tissue, fibroconnective tissue and reactive synovial tissue. SJ:blaise 07/17/18 Signed Molina Marina 07/17/18 <signature on file> Performed By: #### PKNEE #### [facility] [place], [address] 12 LEAD ELECTROCARDIOGRAM Observed: 06/28/2018 Status: F Source: [place] 2:40 PM [facility] REPOSITORY [facility] Cardiovascular Services [address] [place] [address] EKG - [facility] 06/25/18 1056 MR#: [id number] Acct: [id number] Name: EBONIE VEGA Rep #: [id number] : 1955 63 From: Irineo Britt MD Attending Dr: Edy Hugo DO Status: PRE IN Ordering Dr: Edy Hugo DO Date: 06/25/18 Location: [facility] Sex: F C Admitted: Test Reason : Blood Pressure : / mmHG Vent. Rate : 062 BPM Atrial Rate : 062 BPM P-R Int : 170 ms QRS Dur : 092 ms QT Int : 420 ms P-R-T Axes : 039 -18 012 degrees QTc Int : 426 ms Normal sinus rhythm Minimal voltage criteria for LVH, may be normal variant Borderline ECG Confirmed by IRINEO BRITT MD ([id number]), news copy editor KATIE GUTIERRES ([id number]) on 06/28/2018 2:39:41 PM Referred By: Edy Hugo Confirmed By:IRINEO BRITT MD 06/28/18 1439 Date Irineo Britt MD CC: Juanis Garnett DOCUMENT PREPARER MICROFILMING; Edy Hugo DO Date Dictated: 06/25/18 1056 Date Transcribed: 06/25/18 105 Fourth Grade Teacher: Signed CBC W/DIFF, AUTOMATED Collected: 2018 Status: F Source: [place] 11:04 AM [facility] REPOSITORY TYPE CODE TESTS RESULT OUT OF RANGE REFERENCE UNITS LAB L100.1000 4.4-11.0 K/mm3 Normal WBC 5.0 LAB L100.1200 4.2-5.4 M/mm3 Normal RBC 4.48 LAB L100.1300 12.0-15.0 g/dl Normal HGB 14.2 LAB L100.1400 37-47 % Normal HCT 43.3 LAB L100.1500 81-99 fL Normal MCV 96.7 LAB L100.1600 27.0-32.0 pg Normal MCH 31.7 LAB L100.1700 32-36 g/gl Normal MCHC 32.8 LAB L100.1810 11.6-14.6 % Normal RDW CV 13.2 LAB L100.1820 35.1-43.9 fl High RDW SD 46.3 LAB L100.1900 150-450 K/mm3 Normal PLT 177 LAB L100.2000 6.2-12.0 fl Normal MPV 9.9 LAB L100.2100 47-70 % Normal NEUT% 54.4 LAB L100.2200 19-41 % Normal LY% 32.9 LAB L100.2300 0-10 % High MONO% 10.9 LAB L100.2400 0-5 % Normal EO% 1.2 LAB L100.2500 0-1 % Normal BASO% 0.6 LAB L100.2550 0.0-0.9 % Normal IM GRAN % 0.000 Result Comment: IG% - Immature Granulocytes (promyelocytes, myelocytes and metamyelocytes) > 1% indicates that a LEFT SHIFT is Present. LAB L100.2620 2.0-7.7 X10 3/uL Normal Absolute Neut 2.7 LAB L100.2720 0.83-4.51 X10 3/ul Normal Absolute Lymph 1.63 Performed By: #### L100.0100 #### [facility] [address] [place], [place], [address] BASIC METABOLIC Collected: 2018 Status: F Source: [place] PROFILE ([facility]) 11:04 AM [facility] REPOSITORY TYPE CODE TESTS RESULT OUT OF RANGE REFERENCE UNITS LAB L501.0100 74-106 mg/dL Normal GLU 85 Result Comment: Please note revised GLUCOSE reference range effective 2017. LAB L501.1000 7-18 mg/dL Normal BUN 13 LAB L501.1100 0.55-1.02 mg/dL Normal CREAT,SERUM 0.94 Result Comment: The validity of the calculated GFR AND GFRAA in patients over 70 years has not been determined. Clinical correlation is essential. LAB L501.1110 >60 mL/min Normal EST GFR 64 Result Comment: Non- GFR Calc LAB L501.1115 >60 mL/min Normal EST GFR - AA 77 Result Comment: GFR Calc LAB L501.1255 ml/min Normal Estimated CRCL 54.41 LAB L501.1300 10-20 RATIO Normal BUN/CRE 13.8 LAB L501.2200 8.5-10 mg/dL Normal .1 CA 9.6 LAB L501.5300 136-14 mmol/L Normal 5 NA 143 LAB L501.5600 3.5-5. mmol/L Normal 1 K 4.3 LAB L501.5900 98-107 mmol/L Normal CL 105 LAB L501.6100 21.0-3 mmol/L Normal 2.0 CO2 30.0 LAB L501.6200 5-15 Normal GAP 8 Performed By: #### L500.2500, L501.9520 #### [facility] [address] [place], [address] THYROID STIM HORMONE Collected: 2018 Status: F Source: [place] (TSH) 11:04 AM [facility] REPOSITORY TYPE CODE TESTS RESULT OUT OF RANGE REFERENCE UNITS LAB L501.9520 0.358-3.74 uIU/mL Normal TSH 1.72 Performed By: #### L500.2500, L501.9520 #### [facility] [address] [place], [address] Observed: 2018 Status: F Source: [place] MRSA/SAID SCREEN 10:50 AM [facility] REPOSITORY MRSA/SAID SCRN S. AUREUS S. aureus Positive MRSA MRSA Negative Performed By: #### M100.651 #### [facility] [address] [place], [address] SCREENING MAMM (CAD), Observed: 03/14/2018 Status: F Source: [place] BILAT 9:32 AM [facility] REPOSITORY [facility] Imaging Services [address] [place] [address] SCREENING MAMM (CAD), BILAT MR#: [id number] Acct: [id number] Name: EBONIE VEGA Rep #: [id number] : 1955 F 62 From: Uriel Fox MD PCP: Juanis Garnett NP Status: REG CLI Study: SCREENING MAMM (CAD), BILAT Date of Exam: 03/14/18 Exam# [id number] Ordering Dr: Juanis Garnett MAMMOGRAPHY - BILATERAL SCREENING REASON FOR EXAM: Female, 62 years old. Routine annual screening examination. PERTINENT HISTORY: Non-contributory. TECHNIQUE: Digital bilateral breast laine (3D mammographic acquisition) in the CC and MLO projections. 2-D mediolateral oblique (MLO) and craniocaudad (CC) views of both breasts were obtained. CAD: Full Field Digital Mammography with Computer Added Detection was performed. COMPARISON: Comparison is made with prior study dated March 13, 2017 and March 08, 2016. FINDINGS: Breast Composition: There are scattered areas of fibroglandular density. There are no dominant masses or suspicious calcifications. No other significant abnormalities are identified. There has been no significant change since the prior study. BI/SCREENING MAMM (CAD), BILAT IMPRESSION: Stable bilateral screening mammogram. Yearly follow-up mammogram recommended. (A) ASSESSMENT CATEGORY: BIRADS Category 1: Negative. A letter regarding these results will be sent to the patient by the facility within 30 days. Approximately 10% of breast cancers are not detected by mammography. A normal mammogram should not delay biopsy of a clinically suspicious abnormality. [id number] Electronically Signed: Uriel Fox MD at 14:03 EDT Tel [phone], Service support , CC: Juanis Garnett NP Fourth Grade Teacher: Signed DEXA BONE DENSITY Observed: 03/14/2018 Status: F Source: [place] STUDY 9:32 AM [facility] REPOSITORY [facility] Imaging Services [address] [place] [address] Dexa Bone Density Study MR#: [id number] Acct: [id number] Name: EBONIE VEGA #: [id number] : 1955 F 62 From: Uriel Fox MD PCP: Juanis Garnett NP Status: REG CLI Study: Dexa Bone Density Study Date of Exam: 03/14/18 Exam# [id number] Ordering Dr: Juanis Garnett STUDY: DUAL ENERGY X-RAY ABSORPTIOMETRY / DXA REASON FOR EXAM: Female, 62 years old. The patient is postmenopausal. Loss of height. TECHNIQUE: Bone Mineral Density (BMD) measurements of lumbar spine and bilateral hips were obtained. COMPARISON: Comparison is made with prior study dated February 01, 2010. FINDINGS: Lumbar Spine (L1-L4): g/cm2 (1.276) / T-score (0.9) / Z-score (2.4) Findings are suggestive of normal bone density with a low fracture risk. Left Femur Total: g/cm2 (1.040) / T-score (0.3) / Z-score (1.4) Left Femoral Neck: g/cm2 (1.023) / T-score (-0.1) / Z- score (1.3) Right Femur Total: g/cm2 (1.024) / T-score (0.1) / Z- score (1.2) Right Femoral Neck: g/cm2 (1.050) / T-score (0.1) / Z- score (1.5) The T-Scores on the most recent prior examination were: Lumbar Spine (L1-L4): There has been worsening of bone density since the previous examination. Left Femur Total: which represents a worsening of 7.9%. Right Femur Total: which represents a worsening of 6.9%. BD/Dexa Bone Density Study IMPRESSION: The patient is considered normal as outlined below according to World Ronan Organization (WHO) criteria with a low fracture risk. There has been worsening of bone density since the previous examination. Reference Information: The T-score is the number of standard deviations above or below the standard which is normal for young adults at their peak bone mineral density. The World Health Organization (WHO) interprets the T-scores as follows: Above -1 Normal bone density Between -1 and -2.5 Osteopenia Equal to / or below -2.5 Osteoporosis As a practical clinical guideline, osteopenia may be graded as follows: Mild -1 through -1.5 Moderate -1.6 through -2.0 Severe -2.1 through -2.4 The Z-score is the number of standard deviations above or below age-matched controls. A Z-score of less than -1.5 would be considered abnormal. References: 1. NIH Osteoporosis and Related Bone Diseases http://www.osteo.org 2. International Society for Clinical Densitometry http://www.iscd.org 3. National Osteoporosis Foundation http://www.nof.org Electronically Signed: Uriel Fox MD at 15:24 EDT Tel [phone], Service support , CC: Juanis Garnett NP Fourth Grade Teacher: Signed THYROID Observed: 01/31/2018 Status: F Source: [place] 10:31 AM [facility] REPOSITORY [facility] Imaging Services [address] [place] [address] Thyroid MR#: [id number] Acct: [id number] Name: EBONIE VEGA Rep #: [id number] : 1955 F 62 From: Shree Turner MD PCP: Juanis Garnett NP Status: REG CLI Study: Thyroid Date of Exam: 01/31/18 Exam# [id number] Ordering Dr: Juanis Garnett STUDY: THYROID ULTRASOUND REASON FOR EXAM: Female, 62 years old. Nodules TECHNIQUE: Ultrasound evaluation of the thyroid was performed with real-time and static pickering-scale imaging. COMPARISON: 03/13/2017. FINDINGS: RIGHT LOBE: The right lobe of the thyroid gland measures 6.7 x 2.1 x 2.4 cm. There is a heterogeneous echotexture. There are numerous nodules that are grossly stable. Largest is 1.2 cm which is similar to prior exam. LEFT LOBE: The left lobe of the thyroid gland measures 6.8 x 2.4 x 2.6 cm. There is a heterogeneous echotexture. There are numerous nodules that are grossly stable. Largest is 1.4 cm which is similar to prior exam. ISTHMUS: The isthmus measures 8 mm . The regional lymph nodes are normal. US/Thyroid IMPRESSION: Diffusely enlarged and heterogeneous thyroid with numerous nodules consistent with relatively stable multinodular goiter. Electronically Signed: Shree Turner MD at 17:09 EDT , Service support , CC: Juanis Garnett NP Fourth Grade Teacher: Signed ALLERGIES ALLERGIES DATE TYPE / CODE NAME / CODE REACTION SEVERITY SOURCE 2018 Drug No Known Unknown [facility] Allergy/4160 Allergies/F00 Hospital 03345(SNOMED [id number](RXNOR Repository CT) M) ENCOUNTERS ENCOUNTERS ADMIT/DISCHARGE ACCOUNT ADMITTING ENCOUNTER LOCATION SOURCE NUMBER CLASS 07/15/2018/ [id number] Oanh, Ambulatory Kimberley Kress 8 8 [facility] ing:ZW8Ynlt: Repository UP273Hjx: 1 2018 [id number] Ambulatory BMSBuilding:W Kress 8 [facility] Repository 06/05/2018/ [id number] Ambulatory BMSBuilding:B Kimberley 8 5 [facility] Repository 03/14/2018 [id number] Ambulatory Kress Kimberley 9 [facility] ing:OPBD Repository 01/31/2018 [id number] Ambulatory Kimberley Kress 2 [facility] ing:OPUS Repository PAYERS PAYERS ENCOUNTER GUARANTOR PAYER SUBSCRIBER SOURCE 07/15/2018 EBONIE D Primary EBONIE D Kress [id number] Insurance:MEDICAL CARRABINEDOB: [facility] [id number] Number: Repository [address]Cbs: 330 [id number] [phone] (HP) Date:[id number] [address] [address]YW: 07/15/2018 Secondary NOT GIVENUNK Kress Insurance:SELF PAY [facility] Number: Effective Repository Date:2018-02-05 2018 EBONIE D Primary EBONIE D Kress [id number] Insurance:MEDICAL CARRABINEDOB: [facility] [id number] Number: Repository [id number]: 330 [id number] [phone] (HP) Date:[id number] [address] [place] [phone]: 2018 Secondary NOT GIVENUNK Kimberley Insurance:SELF PAY [facility] Number: Effective Repository Date:2018 06/05/2018 EBONIE D Primary EBONIE D Kimberley [id number] Insurance:MEDICAL CARRABINEDOB: [facility] [id number] Number: Repository [id number]: 330 [id number] [phone] (HP) Date:0834-64-11ZX [address] [place] [id number]: 06/05/2018 Secondary NOT GIVENUNK Kimberley Insurance:SELF PAY [facility] Number: Effective Repository Date:2018-06-05 03/14/2018 Ebonie D Primary Ebonie D Kimberley [id number] Insurance:MEDICAL CarrabineDOB: [facility] [id number] Number: Repository [id number]: 330 [id number] [phone] (HP) Date:[id number] [address] [place] [phone]: 03/14/2018 Secondary NOT GIVENUNK Kimberley Insurance:SELF PAY [facility] Number: Effective Repository Date:2018-02-01 01/31/2018 Ebonie Faulknerabine711 Insurance:MEDICAL CarrabineDOB: [facility] [id number] Number: Repository [id number]: [phone] [id number] [phone] () Date:[id number], [place] [address]FE: 01/31/2018 Secondary NOT GIVENUNK Kimberley Insurance:SELF PAY [facility] Number: Effective Repository Date:2018-01-22
== END 2018-07-16 14:20 | disposition home or self-care (01) ==
LOC: SDC 11:03
PROVIDERS: Admitting Provider Orthopaedic Surgery; Family Provider Nurse Practitioner; PCP Nurse Practitioner; Referring Provider Orthopaedic Surgery; Visit Provider Orthopaedic Surgery
PROC: (CPT 27447; principal; 2018-07-15 06:50)
DX: M17.11 Unilateral primary osteoarthritis, right knee (principal); E07.9 Disorder of thyroid, unspecified; Z79.899 Other long term (current) drug therapy; E78.00 Pure hypercholesterolemia, unspecified
CPT/HCPCS: 01400; 27447; 64447; 36415; 80048; 84443; 85025; 85027; 87077; 87081; 88305; 88311; 93005; 96365; 96366; 97110; 97162; 97166; 97530; 99218; C1776; J7120; G0378; G0379; J0702; J2405

== ENCOUNTER 2019-01-13 07:19 | Observation (INO) | payer OTHER, SELFPAY ==
[2018-07-15 10:14] VITALS: BMI 33.6
[2018-12-31 09:09] VITALS: BP 126/86; PULSE 71; RESP 16; TEMP 36.4; O2SAT 97; BMI 33.5
--- NOTE | 2018-12-31 09:18 | SDCEKG_ITS ---
Test Reason : Blood Pressure : / mmHG Vent. Rate : 069 BPM Atrial Rate : 069 BPM P-R Int : 174 ms QRS Dur : 094 ms QT Int : 404 ms P-R-T Axes : 006 074 030 degrees QTc Int : 432 ms Normal sinus rhythm Possible Left atrial enlargement Septal infarct , age undetermined Abnormal ECG Confirmed by PEPPER MATIAS, ROLAND ([id number]), advertising editor KANNAN BURDICK ([id number]) on 01/02/2019 1:31:54 PM Referred By: Edy Hugo Confirmed By:ROLAND PABON MD
[2018-12-31 09:51] LABS: Absolute Lymphocyte Count 1.42 X10^3/ul (0.83-4.51); Absolute Neutrophil Count 2.2 X10^3/uL (2.0-7.7); Basophil# 0.03 X10^3/uL; Basophil% 0.7 % (0-1); Eosinophil# 0.09 X10^3/uL; Eosinophils% 2.1 % (0-5); Hematocrit 39.7 % (37-47); Hemoglobin 13.5 g/dl (12.0-15.0); Lymphocyte # 1.42 X10^3/ul (4.0); Lymphocyte % 33.4 % (19-41); Mean Corpuscular Hgb 30.8 pg (27.0-32.0); Mean Corpuscular Volume 90.4 fL (81-99); Mean Platelet Vol. 9.2 fl (6.2-12.0); Monocyte# 0.48 X10^3/uL; Monocyte% 11.3 % (0-10); Neutrophil # 2.23 X10^3/uL (2.7-7.7); Neutrophil % 52.5 % (47-70); POSITIVE COUNT NO; POSITIVE DIFFERENTIAL NO; POSITIVE MORPHOLOGY NO; Platelet Count 171 K/mm3 (150-450); Red Blood Count 4.39 M/mm3 (4.2-5.4); White Blood Count 4.3 K/mm3 (4.4-11.0)
[2018-12-31 10:07] LABS: Anion Gap 9 (5-15); BUN 17 mg/dL (7-18); Chloride 107 mmol/L (98-107); Creatinine, Serum 0.89 mg/dL (0.55-1.02); EST Glomerular Filtration Rate 67 mL/min (>60); Est Glom Filt Rate - Afr Amer 82 mL/min (>60); Estimated Creatinine Clearance 59.78 ml/min; Glucose 109 mg/dL (74-106); Potassium 3.9 mmol/L (3.5-5.1); Sodium Level 143 mmol/L (136-145)
[2019-01-13] VITALS (11 sets, daily range): BP systolic 113–149; BP diastolic 55–78; PULSE 63–87; RESP 16–18; TEMP 36.1–36.7; O2SAT 94–100; BMI 33.5; BMI 34.5
[2019-01-13] MEDS: Celecoxib 200 MG Capsule 400 MG PO (06:03)
[2019-01-13] MEDS: oxyCODONE HCl Cr 10 MG Tablet PO (06:04)
[2019-01-13] MEDS: Acetaminophen 500 MG Tablet 1000 MG PO (06:05)
[2019-01-13] MEDS: Lactated Ringers 1,000 ML 999 ML IV (06:33)
[2019-01-13] MEDS: Cefazolin 2 GM in 0.9% Normal Saline 100 ML IV (07:13)
--- NOTE | 2019-01-13 07:15 | KNEE_PTH ---
PATIENT: CHANDRIKA VEGA LOC: MS3 U#:[id number] AGE/SX: 63/F ROOM: MS305 RE01/13/[address]: Dr. Edy Hugo DO : 1955 BED: 1 DIS: 01/14/2019 SPEC #: [id number] RECD: 01/13/19 10:25 STATUS: KARI BANDAR #: [id number] NICOLA: 01/13/19 07:[address]: Edy Hugo DEPT: SURGICAL PATHOLOGY RECD BY: Yancy Dominguez ENTERED: 01/13/19 11:04 SP TYPE: TOTAL KNEE OTHR DR: Juanis Garnett, PERSONAL HEALTH COACH-C Tissues: Knee, NOS Procedures: Decalcification bone/plaque Surgery Specimen Level IV HEADER OPERATION: Total knee replacement PRE-OP DIAGNOSIS: Osteoarthritis left knee TISSUE SUBMITTED: Left knee bone and tissue MICROSCOPIC DIAGNOSIS Bone and soft tissue of left knee, total knee resection: Severe degenerative joint disease. Mild synovial hyperplasia with associated mild chronic inflammation. AM:blaise 01/16/19 MICROSCOPIC DESCRIPTION Slides are reviewed. GROSS DESCRIPTION Received is one container designated bone and soft tissue left knee. The specimen consists of multiple fragments of gee-yellow bone measuring in aggregate 17 x 10 x 1.5 cm. Also in the specimen container are multiple fragments of yellow-white soft tissue measuring in aggregate 9 x 6 x 2 cm. A number of bony fragments contain articular surfaces consistent with tibial plateau and femoral condyle and displaying prominent osteophyte formation, eburnation, and bone erosion. Program/Music Director sections are submitted in two cassettes as follows: 1 - soft tissue, 2 - bone after decalcification. / AM:blaise 01/13/19 TC:5 [facility]: [id number], [id number]
[2019-01-13] MEDS: Lactated Ringers 1,000 ML 100 ML IV ×2 (09:34→11:53)
--- NOTE | 2019-01-13 09:52 | PCM.OPRPT ---
Report of Operation Date of Procedure: 01/13/19 Pre-Operative Diagnosis: OA Left knee Post-Operative Diagnosis: same Surgery/Procedure Performed:: Left TKR Description of Surgical Findings:: Primary Surgeon/Physician: Edy Hugo philosophy professor: Casey Vega PA-C philosophy professor: Pre-Operative Diagnosis: OA Left knee Post-Operative Diagnosis: same Surgery/Procedure Performed: Left TKR Estimated Blood Loss: minimal Specimen's Removed: bone Type of Anesthesia: spinal ASA Class: 2 Implants: [Mansi Triathlon size 4 PS femur, size 4 tibia, 9 mm polyethylene spacer, 32 mm patella (all components cemented) ] Indications: Patient has severe end-stage osteoarthritis diagnosed via x-rays in the knee. They have failed all forms of conservative measures including activity modification, injections, anti-inflammatories, use of assistive device. The patient has pain that affects on a daily basis and prevents him from doing things that they enjoyed. They have elected to undergo the above procedure. The risks of the procedure were discussed at length and their questions were answered. Procedure Description: The patient was greeted in the preoperative area. The [left ] knee was then marked with a surgical marker. Patient was then taken to or Suite 2. They were administered a dose of antibiotics as well as tranexamic acid. Once adequate anesthesia was obtained and airway was secured to placed in supine position on the operating room table. A well-padded tourniquet was placed on the affected extremity. Leg was then prepped and draped in the usual sterile fashion from the knee down. Ioban was used on the skin. Surgical timeout was then performed and confirmed with all present. Six-inch Esmarch was used to examine the limb and tourniquet was then inflated to 250 mmHg. A longitudinal incision was then planned and carried out in the anterior aspect of the knee. The dissection was then carried the length of the incision the extensor mechanism was identified. Standard medial parapatellar arthrotomy was then performed revealing severe eburnation of bone and periarticular osteophytes. There is complete loss of cartilage especially in the medial compartment with varus alignment. Anterior fat pad was removed for visualization purposes and the anterior medial aspect of the tibia was skeletonized for exposure to the knee. The knee was then flexed the patella was inverted. Opening reamer was then used in the femur approximately 1 cm anterior to the attachment of the PCL. The intramedullary valgus wand was then placed in the femur set at 5? of valgus. The distal femoral cutting jig was then applied to the femur with anticipated resection of approximately 8 mm. This was then made with a oscillating saw. The sizing guide was then placed referencing off the posterior condyles and also reference off the epicondylar axis. This was measured and the appropriate size 4-in-1 cutting jig was then applied to the distal femur. Anterior posterior cuts were made followed by the anterior and posterior chamfer cuts. These bony pieces and fragments were removed and placed on the back table. Posterior retractor was then utilized and the tibia was subluxed anteriorly. Intramedullary tibial alignment jig was then applied to the tibia referencing off the medial one third of the tibial tubercle the anterior tibial spine the middle aspect of the tibiotalar joint. Also reference off patient's [place] slope. The tibial cutting jig was then pinned with anticipated resection of 2 mm off of the deficient medial tibial condyle. This cut was made with the oscillating saw. Once this was complete a laminar distributor sales manager was utilized in both medial lateral meniscus were removed and a posterior capsular osteophytes were also removed. Posterior capsule release was performed in the posterior capsule as well as the geniculate arteries are treated with the aqua Rubén. The tibia was incised and the appropriate sized tibial tray was then pinned. The femoral box cutting jig was then applied to the femur and the box was prepared removing a portion of the intercondylar notch. The femoral trial was then placed and the knee was trialed. Full flexion-extension were easily achieved. The knee seemed to balance quite nicely. Any remaining osteophytes were removed at this time. Once this was complete the patella was everted and the Norberto patella reaming device was then utilized the patella was then placed in the appropriate jig and reamer was then used to remove approximately 9 mm of the undersurface of the patella. A soft tissue remaining was in the way was removed and patella trial was then placed listed maintain excellent tracking using the no thumbs technique. The tibial tray at this point was punched to accommodate the fins of the final implant. At this point cement was mixed on the back table. The trial components were removed and the knee was copiously irrigated. Did use a cocktail of injection for postoperative pain control. The final components were then cemented in the standard fashion and excess cement was removed with cement removal tools and patellar clamp is placed in the patella. As the cement had cured in full extension tourniquet was deflated and hemostasis was perfect with Bovie cautery as well as the aqua Manus. Needle is once again trialed with different size polyethylenes to ensure the full range of motion was achieved as well as excellent balancing ligamentously was achieved. At this point the knee was copiously irrigated. Final implant was then inserted locking mechanism was engaged and confirmed to be locked. The arthrotomy was then closed with #1 Vicryl aggravate type fashion interrupted. Subcutaneous tissue was closed with 0 Vicryl and surgical erna were placed in the skin. A occlusive silver impregnated dressing was then applied followed by well-padded sterile dressing secured with an Romario wrap. The patient was taken to the PACU in stable condition. No complications known at this time. Postoperatively we will maintain standard total knee postoperative protocol. The use of the physician contact center assistant was integral during this procedure. They assisted with positioning, placement of the tourniquet, retracting, closure and placement of the dressing. The procedure would have been much more difficult without their expertise and assistance philosophy professor: aMlik Vega Type of Anesthesia:: Spinal Anesthesiologist: Barrera Bundy Specimen's removed: bone - Admit VTE Documentation VTE Present on Admission: No VTE Mechan Device Prophylaxis: SCD's, Thigh High MADELAINE Hose VTE Pharm Prophylaxis ordered?: Yes
--- NOTE | 2019-01-13 09:56 | OP.PCM_ITS ---
Report of Operation Date of Procedure: 01/13/19 Pre-Operative Diagnosis: OA Left knee Post-Operative Diagnosis: same Surgery/Procedure Performed:: Left TKR Description of Surgical Findings:: Primary Surgeon/Physician: Edy Hugo extruding machine operator: Casey Vega PA-C extruding machine operator: Pre-Operative Diagnosis: OA Left knee Post-Operative Diagnosis: same Surgery/Procedure Performed: Left TKR Estimated Blood Loss: minimal Specimen's Removed: bone Type of Anesthesia: spinal ASA Class: 2 Implants: [Mansi Triathlon size 4 PS femur, size 4 tibia, 9 mm polyethylene spacer, 32 mm patella (all components cemented) ] Indications: Patient has severe end-stage osteoarthritis diagnosed via x-rays in the knee. They have failed all forms of conservative measures including activity modification, injections, anti-inflammatories, use of assistive device. The patient has pain that affects on a daily basis and prevents him from doing things that they enjoyed. They have elected to undergo the above procedure. The risks of the procedure were discussed at length and their questions were answered. Procedure Description: The patient was greeted in the preoperative area. The [left ] knee was then marked with a surgical marker. Patient was then taken to or Suite 2. They were administered a dose of antibiotics as well as tranexamic acid. Once adequate anesthesia was obtained and airway was secured to placed in supine position on the operating room table. A well-padded tourniquet was placed on the affected extremity. Leg was then prepped and draped in the usual sterile fashion from the knee down. Ioban was used on the skin. Surgical timeout was then performed and confirmed with all present. Six-inch Esmarch was used to examine the limb and tourniquet was then inflated to 250 mmHg. A longitudinal incision was then planned and carried out in the anterior aspect of the knee. The dissection was then carried the length of the incision the extensor mechanism was identified. Standard medial parapatellar arthrotomy was then performed revealing severe eburnation of bone and periarticular osteophytes. There is complete loss of cartilage especially in the medial compartment with varus alignment. Anterior fat pad was removed for visualization purposes and the anterior medial aspect of the tibia was s keletonized for exposure to the knee. The knee was then flexed the patella was inverted. Opening reamer was then used in the femur approximately 1 cm anterior to the attachment of the PCL. The intramedullary valgus wand was then placed in the femur set at 5? of valgus. The distal femoral cutting jig was then applied to the femur with anticipated resection of approximately 8 mm. This was then made with a oscillating saw. The sizing guide was then placed referencing off the posterior condyles and also reference off the epicondylar axis. This was measured and the appropriate size 4-in-1 cutting jig was then applied to the distal femur. Anterior posterior cuts were made followed by the anterior and posterior chamfer cuts. These bony pieces and fragments were removed and placed on the back table. Posterior retractor was then utilized and the tibia was subluxed anteriorly. Intramedullary tibial alignment jig was then applied to the tibia referencing off the medial one third of the tibial tubercle the anterior tibial spine the middle aspect of the tibiotalar joint. Also reference off patient's [place] slope. The tibial cutting jig was then pinned with anticipated resection of 2 mm off of the deficient medial tibial condyle. This cut was made with the oscillating saw. Once this was complete a laminar director security risk management was utilized in both medial lateral meniscus were removed and a posterior capsular osteophytes were also removed. Posterior capsule release was performed in the posterior capsule as well as the geniculate arteries are treated with the aqua Rubén. The tibia was incised and the appropriate sized tibial tray was then pinned. The femoral box cutting jig was then applied to the femur and the box was prepared removing a portion of the intercondylar notch. The femoral trial was then placed and the knee was trialed. Full flexion-extension were easily achieved. The knee seemed to balance quite nicely. Any remaining osteophytes were removed at this time. Once this was complete the patella was everted and the Norberto patella reaming device was then utilized the patella was then placed in the appropriate jig and reamer was then used to remove approximately 9 mm of the undersurface of the patella. A soft tissue remaining was in the way was removed and patella trial was then placed listed maintain excellent tracking using the no thumbs technique. The tibial tray at this point was punched to accommodate the fins of the final implant. At this point cement was mixed on the back table. The trial components were removed and the knee was copiously irrigated. Did use a cocktail of injection for postoperative pain control. The final components were then cemented in the standard fashion and excess cement was removed with cement removal tools and pa tellar clamp is placed in the patella. As the cement had cured in full extension tourniquet was deflated and hemostasis was perfect with Bovie cautery as well as the aqua Manus. Needle is once again trialed with different size polyethylenes to ensure the full range of motion was achieved as well as excellent balancing ligamentously was achieved. At this point the knee was copiously irrigated. Final implant was then inserted locking mechanism was engaged and confirmed to be locked. The arthrotomy was then closed with #1 Vicryl aggravate type fashion interrupted. Subcutaneous tissue was closed with 0 Vicryl and surgical erna were placed in the skin. A occlusive silver impregnated dressing was then applied followed by well-padded sterile dressing secured with an Romario wrap. The patient was taken to the PACU in stable condition. No complications known at this time. Postoperatively we will maintain standard total knee postoperative protocol. The use of the physician processing assistant was integral during this procedure. They assisted with positioning, placement of the tourniquet, retracting, closure and placement of the dressing. The procedure would have been much more difficult wi thout their expertise and assistance extruding machine operator: Malik Vega Type of Anesthesia:: Spinal Anesthesiologist: Barrera Bundy Specimen's removed: bone - Admit VTE Documentation VTE Present on Admission: No VTE Mechan Device Prophylaxis: SCD's, Thigh High MADELAINE Hose VTE Pharm Prophylaxis ordered?: Yes
[2019-01-13] MEDS: Cefazolin 1 GM/50 ML BAG IV ×2 (15:26→22:37)
[2019-01-13] MEDS: Atorvastatin Calcium 10 MG Tablet PO (21:10)
[2019-01-13] MEDS: Aspirin 325 MG Tablet PO (21:10)
[2019-01-13] MEDS: HYDROcodone Bitartrate/Apap 5/325 Tablet PO (21:10)
[2019-01-14 02:35] VITALS: BP 141/74; PULSE 86; RESP 16; TEMP 36.8; O2SAT 96
[2019-01-14] MEDS: HYDROcodone Bitartrate/Apap 5/325 Tablet PO (03:22)
--- NOTE | 2019-01-14 07:32 | PN.ORTHO_ITS ---
Subjective: Patient sitting at bedside patient states she is still having some pain in her operative knee. Patient states she is ready for discharge home this afternoon. Patient denies chest pain, shortness breath, calf pain, nausea vomiting. Patient states she would like a stool softener at discharge. Objective: Dressings clean dry intact. Negative signs or symptoms of DVT. Vital signs labs within normal limits. Patient is afebrile neurovascular is otherwise intact. Patient speaking in full sentences with no obvious respiratory distress. - Physical Exam General: Alert, Oriented x3, Cooperative HEENT: PERRLA Oral: Moist Mucosa Neurological: Cranial nerves II-XII grossly intact Psych/Mental Status: Normal Affect, Alert and oriented to time, place, person, mood and affect Vital Signs Temp Pulse Resp BP Pulse Ox 98.2 F 86 16 141/74 H 96 01/14/19 02:35 01/14/19 02:35 01/14/19 02:35 01/14/19 02:35 01/14/19 02:35 Oxygen Delivery Method Room Air Weight: 97.1 kg Body Mass Index (BMI) 34.5 Intake and Output for Last 24 Hours 01/12/19 01/13/19 01/14/19 23:59 23:59 23:59 Intake Total 2549 / 2549 250 / 250 Balance 2549 / 2549 250 / 250 Medical Necessity - Tobacco Use Smoking Status: Never smoker Tobacco Use: Non-smoker Assessment/Plan Status post left total knee arthroplasty 1. We will discontinue [place] patient be discharged with Tylenol Extra Strength to every 8 hours, OxyContin 1-2 every 6 hours for severe pain 2. Continue physical therapy today, weight-bear as tolerated with walker 3. Aspirin 325 mg 1 p.o. every 12 hours x30 days for postop DVT prophylaxis 4. Encourage incentive spirometry 5. Discharge home after p.m. therapy 5. Discharge home after p.m. therapy 6. Follow-up as scheduled, see pink sheet 7. Patient will continue outpatient physical therapy at [facility] [place]
--- NOTE | 2019-01-14 07:43 | PCM.DC.TKR ---
Discharge Diet: No Restrictions Discharge Activity: May Not Drive, May Shower, Use Walker May shower in (days): 3 Ice area for (Minutes): 20 - each hour while awake. Weight Bearing Status: Weight bearing as tolerated Elevate: Operative Extremity Additional Activity Instructions:: Wear elastic stockings for 2 weeks after your surgery. Call your doctor if your incision/area has: Continuous Slow Oozing, Sudden Increased Bleeding, Increased Pain/ Swelling, Increased Redness, Foul Smelling Discharge Call your doctor if you observe: Fever of 101 or Higher, Coldness, Increased Pain - in extremity, Numbness or Tingling, Change in Color, Calf discomfort, Uncontrolled pain Change Dressing in (Days):: 0 - and daily as needed. Remove Dressing in (days):: 8 Cleanse incision/area with: Soap & Water Allergies/Adverse Reactions: Allergies No Known Allergies Allergy (Verified 12/31/18 09:05) Medications to take at Discharge Ascorbic Acid [Vitamin C] 500 mg PO DAILY 06/25/18 Calcium Carbonate/Vitamin D3 [Calcium 600-Vit D3 200 Tablet] 1 each PO DAILY 06/25/18 Cholecalciferol (VIT D3) [Vitamin D3] 3 tab PO DAILY 06/25/18 Levothyroxine Sodium [Synthroid] 100 mcg PO QHS 06/25/18 Multivit-Min/FA/Lycopen/Lutein [Centrum Silver Tablet] 1 each PO DAILY 06/25/18 [place]-3 Fatty Acids/Fish Oil [[place] 3 1,000 mg Softgel] 1 each PO DAILY 06/25/18 Simvastatin [Zocor] 20 mg PO QHS 06/25/18 Vitamin E 400 unit PO DAILY 06/25/18 Acetaminophen [Tylenol] 1,000 mg PO Q8 tablet 01/14/19 Aspirin 325 mg PO BID tablet 01/14/19 Oxycodone [Oxyir] 5 mg PO Q6H PRN PRN 7 Days #60 tab 01/14/19 Sennosides/Docusate Sodium [Senokot-S Tablet] 1 ea PO Q8H PRN PRN #20 tab 01/14/19 The following prescriptions were given: Oxycodone [Oxyir] 5 mg PO Q6H PRN PRN 7 Days #60 tab PRN Reason: Severe Pain (6-05/22) Sennosides/Docusate Sodium [Senokot-S Tablet] 1 ea PO Q8H PRN PRN #20 tab PRN Reason: Constipation Primary Care Physician: Juanis Garnett NP-C [Primary Care Provider] - Test Results: Test results from this visit will be discussed in further detail at your follow-up appointment, if applicable. Please Follow Up With: Malik Vega PA-C When: see pink sheet
[2019-01-14 08:35] VITALS: BP 149/83; PULSE 95; RESP 18; TEMP 36.7; O2SAT 95
[2019-01-14] MEDS: Aspirin 325 MG Tablet PO (09:09)
--- NOTE | 2019-01-14 10:35 | CASEMGMT ---
RN JEFFERY Face to Face with patient for initial transition planning/care coordination assessment. RN JEFFERY introduced self and role at [facility]. Patient lying in bed, alert and oriented. Patient willing to participate in assessment and is able to answer all questions appropriately. Care providers, pharmacy, and demographics verified. Patient wishes to discharge home and is setup with [facility] for outpatient therapy with providing transportation. Patient states she has cane, walker, and shower chair at home. Patient states she has no further needs or concerns at this time. CM to follow for discharge planning needs that may arise
[2019-01-14] MEDS: oxyCODONE 5 MG Tablet PO (11:27)
[2019-01-14 12:57] VITALS: BP 155/82; PULSE 89; RESP 18; TEMP 36.7; O2SAT 95
[2019-01-14] MEDS: Acetaminophen 500 MG Tablet 1000 MG PO (12:59)
[2019-01-14 13:25] VITALS: BP 155/82; PULSE 89; RESP 18; TEMP 36.7; O2SAT 95
== END 2019-01-14 13:17 | disposition home or self-care (01) ==
LOC: MS3 01-14 06:42 → SDC 01-14 11:07
PROVIDERS: Admitting Provider Orthopaedic Surgery; Family Provider Nurse Practitioner; PCP Nurse Practitioner; Referring Provider Orthopaedic Surgery; Visit Provider Orthopaedic Surgery
PROC: (CPT 27447; principal; 2019-01-13 06:50)
DX: M17.12 Unilateral primary osteoarthritis, left knee (principal); E07.9 Disorder of thyroid, unspecified; E78.00 Pure hypercholesterolemia, unspecified; Z79.899 Other long term (current) drug therapy
CPT/HCPCS: 27447; 64447; 80048; 84443; 85025; 87081; 88305; 88311; 93005; 96361; 96365; 96366; 97110; 97161; 97166; 97530; 99218; C1776; J7120; G0378; G0379

== ENCOUNTER → 2019-02-03 09:14 | Outpatient (CLI) | payer OTHER, SELFPAY ==
[2018-07-15 10:14] VITALS: BMI 33.6
[2019-01-13 11:37] VITALS: BMI 34.5
--- NOTE | 2019-02-03 09:15 | US_ITS ---
STUDY: THYROID ULTRASOUND REASON FOR EXAM: Female, 63 years old. Multiple thyroid nodules. TECHNIQUE: Ultrasound evaluation of the thyroid was performed with real-time and static pickering-scale imaging. COMPARISON: Thyroid ultrasound January 31, 2018. FINDINGS: RIGHT LOBE: The right lobe of the thyroid gland measures 5.5 x 1.8 x 1.8 cm. There is a heterogeneous echotexture. There were a number of incompletely defined solid and/or complex nodules. The largest is in the lower pole, measuring 1.85 x 1.0 x 1.0 cm. Another is at the mid pole, measuring 1.2 x 0.8 x 12 cm. A third is in the posterior lower pole, measuring 1.2 x 0.7 x 1.05 cm. The fourth, not measured by the technologist is at the margin of the thyroid isthmus, measuring 1.3 x 0.9 cm (image 48). LEFT LOBE: The left lobe of the thyroid gland measures 6.1 x 2.6 x 2.5 cm. There is a heterogeneous echotexture. There are multiple incompletely defined solid and/or complex nodules. A slightly hyperechoic solid nodule in the mid mid to upper pole is 1.75 x 1.4 x 1.7 cm. Inferior to this is a mildly hypoechoic 1.05 x 0.95 x 1.35 cm solid nodule. A third 5 x 5 x 5 mm nodule with a hypoechoic rim is seen at the anterior mid to lower pole. ISTHMUS: The isthmus measures 8 mm. The regional lymph nodes are normal. US/Thyroid IMPRESSION: Findings consistent with a multinodular goiter, grossly unchanged from prior study. Electronically Signed: Shahid Obrien MD at 15:14 EDT , Service support ,
== END ==
PROVIDERS: Family Provider Nurse Practitioner; PCP Nurse Practitioner; Referring Provider Nurse Practitioner; Visit Provider Nurse Practitioner
DX: E04.2 Nontoxic multinodular goiter (principal)
CPT/HCPCS: 76536

== ENCOUNTER → 2019-03-17 08:00 | Outpatient (CLI) | payer OTHER, SELFPAY ==
[2019-01-13 11:37] VITALS: BMI 34.5
--- NOTE | 2019-03-17 08:03 | BI_ITS ---
MAMMOGRAPHY - BILATERAL SCREENING REASON FOR EXAM: Female, 63 years old. Routine annual screening examination. PERTINENT HISTORY: Non-contributory. TECHNIQUE: Digital bilateral breast crescencio (3D mammographic acquisition) in the CC and MLO projections. 2-D mediolateral oblique (MLO) and craniocaudad (CC) views of both breasts were obtained. CAD: Full Field Digital Mammography with Computer Added Detection was performed. COMPARISON: Comparison is made with prior study dated March 14, 2018 and March 13, 2017. FINDINGS: Breast Composition: There are scattered areas of fibroglandular density. There are no dominant masses or suspicious calcifications. No other significant abnormalities are identified. There has been no significant change since the prior study. BI/SCREEN MAMM (CAD) W/CRESCENCIO BILAT IMPRESSION: Stable bilateral screening mammogram. Yearly follow-up mammogram recommended. (A) ASSESSMENT CATEGORY: BIRADS Category 1: Negative. A letter regarding these results will be sent to the patient by the facility within 30 days. Approximately 10% of breast cancers are not detected by mammography. A normal mammogram should not delay biopsy of a clinically suspicious abnormality. [id number] Electronically Signed: Uriel Fox, at 9:53 EDT , Service support ,
== END ==
PROVIDERS: Family Provider Nurse Practitioner; PCP Nurse Practitioner; Referring Provider Nurse Practitioner; Visit Provider Nurse Practitioner
DX: Z12.31 Encounter for screening mammogram for malignant neoplasm of breast (principal)
CPT/HCPCS: 77063; 77067

== ENCOUNTER → 2020-03-23 09:57 | Outpatient (CLI) | payer OTHER, SELFPAY ==
[2019-06-05 17:37] VITALS: BMI 34.5
--- NOTE | 2020-03-23 10:02 | US_ITS ---
STUDY: THYROID ULTRASOUND REASON FOR EXAM: Female, 64 years old. NODULES TECHNIQUE: Ultrasound evaluation of the thyroid was performed with real-time and static pickering-scale imaging. COMPARISON: Comparison is made with prior examination dated 02/03/2019. FINDINGS: RIGHT LOBE: The right lobe of the thyroid gland is enlarged and measures 5.7 cm x 2.5 cm x 1.6 cm. There is a heterogeneous echotexture. Once again, there are 4 hypoechoic solid nodules in the mid and lower poles of the right lobe. The largest nodule measures 2.1 cm x 1.7 cm by 1 cm. This is in the lower lobe. This has increased slightly in size as compared to prior study. LEFT LOBE: The left lobe of the thyroid gland is enlarged and measures 6 cm x 2.3 cm x 2 cm. There is a heterogeneous echotexture. Once again, multiple nodules are seen. The 3 largest nodules were measured. The largest measures 1.4 cm x 1.6 x 1 cm. This is in the inferior portion of the left lobe. This is unchanged. ISTHMUS: The isthmus is enlarged and measures 8.0 mm. The regional lymph nodes are normal. US/Thyroid IMPRESSION: Thyromegaly. Multiple bilateral nodules as described. The largest nodule in the right lobe measures 2.1 cm x 1.7 cm by 1 cm. A biopsy is indicated for further evaluation. Electronically Signed: Uriel Fox, at 12:06 EDT , Service support ,
--- NOTE | 2020-03-23 10:05 | BI_ITS ---
MAMMOGRAPHY - BILATERAL SCREENING REASON FOR EXAM: Female, 64 years old. Routine annual screening examination. PERTINENT HISTORY: Non-contributory. TECHNIQUE: Digital bilateral breast crescencio (3D mammographic acquisition) in the CC and MLO projections. 2-D mediolateral oblique (MLO) and craniocaudad (CC) views of both breasts were obtained. CAD: Full Field Digital Mammography with Computer Added Detection was performed. COMPARISON: Comparison is made with prior study dated 03/17/2019 and 03/14/2018. FINDINGS: Breast Composition: There are scattered areas of fibroglandular density. There are no dominant masses or suspicious calcifications. Stable small benign appearing bilateral axillary lymph nodes. No other significant abnormalities are identified. There has been no significant change since the prior study. BI/SCREEN MAMM (CAD) W/CRESCENCIO BILAT IMPRESSION: Stable bilateral screening mammogram. Yearly follow-up mammogram recommended. (A) ASSESSMENT CATEGORY: BIRADS Category 2: Benign. A letter regarding these results will be sent to the patient by the facility within 30 days. Approximately 10% of breast cancers are not detected by mammography. A normal mammogram should not delay biopsy of a clinically suspicious abnormality. [id number] Electronically Signed: Uriel Fox, at 12:40 EDT , Service support ,
--- NOTE | 2020-03-23 10:19 | BD_ITS ---
STUDY: DUAL ENERGY X-RAY ABSORPTIOMETRY / DXA REASON FOR EXAM: Female, 64 years old. 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 COMPARISON: Comparison is made with prior study dated 03/14/2018. FINDINGS: Lumbar Spine (L1-L4): g/cm2 (1.377) / T-score (1.5) / Z-score (3.1) Findings are suggestive of normal bone density with a low fracture risk. Left Femur Total: g/cm2 (1.033) / T-score (0.2) / Z-score (1.4) Left Femoral Neck: g/cm2 (0.973) / T-score (-0.5) / Z-score (1.0) Right Femur Total: g/cm2 (1.009) / T-score (0.0) / Z-score (1.2) Right Femoral Neck: g/cm2 (1.02) / T-score (-0.1) / Z-score (1.4) The T-Scores on the most recent prior examination were: Lumbar Spine (L1-L4): There has been improvement of bone density since the previous examination. Left Femur Total: which represents a worsening of 0.7%. Right Femur Total: which represents a worsening of 1.5%. BD/Dexa Bone Density Study IMPRESSION: The patient is considered normal as outlined below according to World Ronan Organization (WHO) criteria with a low fracture risk. There has been worsening of bone density since the previous examination. Reference Information: The T-score is the number of standard deviations above or below the standard which is normal for young adults at their peak bone mineral density. The World Health Organization (WHO) interprets the T-scores as follows: Above -1 Normal bone density Between -1 and -2.5 Osteopenia Equal to / or below -2.5 Osteoporosis As a practical clinical guideline, osteopenia may be graded as follows: Mild -1 through -1.5 Moderate -1.6 through -2.0 Severe -2.1 through -2.4 The Z-score is the number of standard deviations above or below age-matched controls. A Z-score of less than -1.5 would be considered abnormal. References: 1. NIH Osteoporosis and Related Bone Diseases http://www.osteo.org 2. International Society for Clinical Densitometry http://www.iscd.org 3. National Osteoporosis Foundation http://www.nof.org Electronically Signed: Uriel Fox, at 14:39 EDT , Service support ,
== END ==
PROVIDERS: PCP Nurse Practitioner; Referring Provider Nurse Practitioner; Visit Provider Nurse Practitioner
DX: Z12.31 Encounter for screening mammogram for malignant neoplasm of breast (principal); Z78.0 Asymptomatic menopausal state; E04.2 Nontoxic multinodular goiter
CPT/HCPCS: 76536; 77063; 77067; 77080

== ENCOUNTER → 2020-03-30 12:22 | Outpatient (CLI) | payer OTHER, SELFPAY ==
[2019-06-05 17:37] VITALS: BMI 34.5
--- NOTE | 2020-03-30 12:26 | US_ITS ---
PROCEDURE: ULTRASOUND-GUIDED FINE-NEEDLE ASPIRATION OF LEFT THYROID LOBE NODULE INDICATION: Female, 64 years old. Right Thyroid nodule Ultrasound guidance CONSENT: The risks, benefits and alternatives to the procedure were explained to the patient, and the patient agreed to the procedure and signed the consent. STERILE BARRIER TECHNIQUE: The following sterile barrier precautions were used during the procedure: hand hygiene; use of 2% chlorhexidine aseptic; use of a cap, mask, sterile gown, sterile gloves, sterile full body drape, and a large sterile sheet. PROCEDURE/TECHNIQUE: The patient agreed to the procedure and signed a consent form for the procedure. A timeout was performed to confirm the patient''s identity, the type of procedure, to be performed and the site of entry. Patient was positioned supine on the exam table. Under the ultrasound guidance using sterile technique and after infiltration of the skin and subcutaneous soft tissues with 10 mL of lidocaine 1% a 20-gauge core biopsy needle is introduced in the right thyroid lobe nodule. 4 passes were made. The samples were placed in formalin solution and sent to lab for evaluation. FINDINGS: Successful ultrasound-guided core biopsy of right thyroid lobe nodule. US/FNA 1st Biopsy w/ US IMPRESSION: Successful ultrasound-guided core biopsy of right thyroid lobe nodule. Electronically Signed: Reji Carrizales, at 16:00 EDT Tel , Service support ,
--- NOTE | 2020-03-30 12:42 | THYROID_PTH ---
PATIENT: CHANDRIKA VEGA LOC: [facility]#:[id number] AGE/SX: 70/F ROOM: RE03/30/[address]: WESLEY Arnold : 1955 BED: DIS: SPEC #: [id number] RECD: 03/30/20 13:04 STATUS: KARI BANDAR #: [id number] NICOLA: 03/30/20 12:[address]: Juanis Garnett NP DEPT: SURGICAL PATHOLOGY RECD BY: Thanh Pierson Tissues: Thyroid gland, NOS Procedures: Surgery Specimen Level IV HEADER OPERATION: Thyroid biopsy PRE-OP DIAGNOSIS: Multinodular TISSUE SUBMITTED: Right lobe 1.98 x 1.6 x 1.1 cm (solid) MICROSCOPIC DIAGNOSIS Right thyroid lobe nodule, core biopsy: Consistent with benign colloid nodule. See comment. LIVIA:blaise 03/31/20 COMMENT Correlation with clinical, radiologic findings and appropriate follow up are necessary. MICROSCOPIC DESCRIPTION Slides are reviewed. GROSS DESCRIPTION Received in fixative is one container labeled with the patient's name and designated right thyroid nodule. The specimen consists of multiple irregular fragments of gee soft tissue that in aggregate measure 1.5 x 0.2 x 0.1 cm. The specimen is totally submitted in one cassette. / SJ:blaise 03/30/20 TC:5 CPT: 89776
== END ==
PROVIDERS: PCP Nurse Practitioner; Referring Provider Nurse Practitioner; Visit Provider Nurse Practitioner
DX: E04.1 Nontoxic single thyroid nodule (principal)
CPT/HCPCS: 10005; 88305

== ENCOUNTER → 2020-07-28 09:00 | Outpatient (CLI) | payer MEDICARE, SELFPAY ==
[2019-06-05 17:37] VITALS: BMI 34.5
--- NOTE | 2020-07-28 09:03 | US_ITS ---
STUDY: RENAL ULTRASOUND - COMPLETE REASON FOR EXAM: Female, 65 years old. Decreased gfr TECHNIQUE: Ultrasound evaluation of the kidneys was performed with real-time and static mandel-scale imaging. COMPARISON: None. FINDINGS: RIGHT KIDNEY: Normal location of the right kidney, which is normal in size. The right kidney measures 10.7 cm x 4 cm x 4.4 cm. There is a normal cortex of the right kidney. The renal cortex measures 1.1 cm. There is no right renal mass or cyst. There are no right renal calculi. There is no right hydronephrosis. DISTAL RIGHT URETER: There is non-visualization of the distal right ureter. There is no demonstrated right ureterovesical junction calculus. There is a visualized right ureteral jet. LEFT KIDNEY: Normal location of the left kidney, which is normal in size. The left kidney measures 9.9 cm x 4.2 cm x 4.3 cm. There is a normal cortex of the left kidney. The renal cortex measures 1.5 cm. There is no left renal mass or cyst. There are no left renal calculi. There is no left hydronephrosis. DISTAL LEFT URETER: There is non-visualization of the distal left ureter. There is no demonstrated left ureterovesical junction calculus. There is a visualized left ureteral jet. BLADDER: The distended urinary bladder has a volume of 154 ml. There is a normal wall thickness of the distended urinary bladder. There is no demonstrated mass within the urinary bladder. There are no demonstrated bladder calculi. US/Kidney and Bladder IMPRESSION: Normal ultrasound of the kidneys and urinary bladder. Electronically Signed: Uriel Fox, at 13:56 EST , Service support ,
== END ==
PROVIDERS: PCP Nurse Practitioner; Referring Provider Nurse Practitioner; Visit Provider Nurse Practitioner
DX: R94.4 Abnormal results of kidney function studies (principal)
CPT/HCPCS: 76770

== ENCOUNTER → 2021-04-04 10:38 | Outpatient (CLI) | payer MEDICARE, SELFPAY ==
[2019-06-05 17:37] VITALS: BMI 34.5
--- NOTE | 2021-04-04 10:44 | US_ITS ---
STUDY: THYROID ULTRASOUND REASON FOR EXAM: Female, 65 years old. Thyroid nodules. TECHNIQUE: Ultrasound evaluation of the thyroid was performed with real-time and static pickering-scale imaging. COMPARISON: Comparison is made with prior examination dated 03/23/2020. FINDINGS: RIGHT LOBE: The right lobe of the thyroid gland is enlarged and measures 6.2 cm x 2.5 cm x 2.3 cm. There is a heterogeneous echotexture. Once again, there are at least 4 hypoechoic solid nodules in the mid and lower poles of the right lobe of the thyroid. The largest measures 1.7 cm x 1.4 cm x 1 cm. This is in the lower lobe. LEFT LOBE: The left lobe of the thyroid gland is enlarged and measures 6.5 cm x 2.5 cm x 2.4 cm. There is a heterogeneous echotexture. Once again, multiple nodules are seen. The largest measures 1.5 cm x 0.9 cm x 0.9 cm. This is in the inferior pole. ISTHMUS: The isthmus measures 1.1 cm. There is a 7 mm x 4 mm x 3 mm cyst in the isthmus. The regional lymph nodes are normal. US/Thyroid IMPRESSION: Enlarged right and left lobe of the thyroid gland with multiple nodules as described. Heterogeneous appearance of the thyroid echotexture. There has been essentially no change. Electronically Signed: Uriel Fox MD at 15:26 EDT , Service support ,
--- NOTE | 2021-04-04 10:44 | BI_ITS ---
MAMMOGRAPHY - BILATERAL SCREENING REASON FOR EXAM: Female, 65 years old. Routine annual screening examination. PERTINENT HISTORY: Mother with breast cancer. TECHNIQUE: Digital bilateral breast crescencio (3D mammographic acquisition) in the CC and MLO projections. 2-D mediolateral oblique (MLO) and craniocaudad (CC) views of both breasts were obtained. CAD: Full Field Digital Mammography with Computer Added Detection was performed. COMPARISON: Comparison is made with prior study dated 03/23/2020 and 03/17/2019. FINDINGS: Breast Composition: There are scattered areas of fibroglandular density. There are no dominant masses or suspicious calcifications. Stable small benign-appearing bilateral axillary lymph nodes. No other significant abnormalities are identified. There has been no significant change since the prior study. BI/SCRN MAMM (CAD)W/CRESCENCIO BILAT IMPRESSION: Stable bilateral screening mammogram. Yearly follow-up mammogram recommended. (A) ASSESSMENT CATEGORY: BIRADS Category 2: Benign. A letter regarding these results will be sent to the patient by the facility within 30 days. Approximately 10% of breast cancers are not detected by mammography. A normal mammogram should not delay biopsy of a clinically suspicious abnormality. [id number] Electronically Signed: Uriel Fox MD at 11:30 EDT , Service support ,
== END ==
PROVIDERS: PCP Nurse Practitioner; Referring Provider Nurse Practitioner; Visit Provider Nurse Practitioner
DX: Z12.31 Encounter for screening mammogram for malignant neoplasm of breast (principal); Z80.3 Family history of malignant neoplasm of breast; E04.1 Nontoxic single thyroid nodule
CPT/HCPCS: 76536; 77063; 77067

== ENCOUNTER → 2022-04-05 | Outpatient (CLI) | payer MEDICARE, SELFPAY ==
--- NOTE | 2022-04-05 09:28 | BI_ITS ---
MAMMOGRAPHY - BILATERAL SCREENING REASON FOR EXAM: Female, 66 years old. Routine annual screening examination. PERTINENT HISTORY: Mother with breast cancer. TECHNIQUE: Digital bilateral breast crescencio (3D mammographic acquisition) in the CC and MLO projections. 2-D mediolateral oblique (MLO) and craniocaudad (CC) views of both breasts were obtained. CAD: Full Field Digital Mammography with Computer Added Detection was performed. COMPARISON: Comparison is made with prior examination dated 04/04/2021 and 03/23/2020. FINDINGS: Breast Composition: There are scattered areas of fibroglandular density. There are no dominant masses or suspicious calcifications. Stable small benign-appearing bilateral axillary lymph nodes. No other significant abnormalities are identified. There has been no significant change since the prior study. BI/SCRN MAMM (CAD)W/CRESCENCIO BILAT IMPRESSION: Stable bilateral screening mammogram. Yearly follow-up mammogram recommended. (A) ASSESSMENT CATEGORY: BIRADS Category 2: Benign. A letter regarding these results will be sent to the patient by the facility within 30 days. Approximately 10% of breast cancers are not detected by mammography. A normal mammogram should not delay biopsy of a clinically suspicious abnormality. [id number] Electronically Signed: Uriel Fox MD at 10:27 EDT ,
--- NOTE | 2022-04-05 09:30 | BD_ITS ---
STUDY: DUAL ENERGY X-RAY ABSORPTIOMETRY / DXA REASON FOR EXAM: Female, 66 years old. [id number]. The patient is postmenopausal. TECHNIQUE: Bone Mineral Density (BMD) measurements of lumbar spine and bilateral hips were obtained. COMPARISON: Comparison is made with prior study dated 03/23/2020. FINDINGS: Lumbar Spine (L1-L4): g/cm2 (1.100) / T-score (0.4) / Z-score (2.4) Findings are suggestive of normal bone density with a low fracture risk. Left Femur Total: g/cm2 (0.970) / T-score (0.2) / Z-score (1.6) Left Femoral Neck: g/cm2 (0.853) / T-score (0.0) / Z-score (1.7) Right Femur Total: g/cm2 (1.009) / T-score (0.5) / Z-score (1.9) Right Femoral Neck: g/cm2 (0.845) / T-score (0.0) / Z-score (1.6) The T-Scores on the most recent prior examination were: Lumbar Spine (L1-L4): There has been worsening of bone density since the previous examination. Left Femur Total: which represents an improvement of 0.4%. Right Femur Total: which represents an improvement of 7%. BD/Dexa Bone Density Study IMPRESSION: The patient is considered normal as outlined below according to World Ronan Organization (WHO) criteria with a low fracture risk. There has been improvement of bone density since the previous examination. Reference Information: The T-score is the number of standard deviations above or below the standard which is normal for young adults at their peak bone mineral density. The World Health Organization (WHO) interprets the T-scores as follows: Above -1 Normal bone density Between -1 and -2.5 Osteopenia Equal to / or below -2.5 Osteoporosis As a practical clinical guideline, osteopenia may be graded as follows: Mild -1 through -1.5 Moderate -1.6 through -2.0 Severe -2.1 through -2.4 The Z-score is the number of standard deviations above or below age-matched controls. A Z-score of less than -1.5 would be considered abnormal. References: 1. NIH Osteoporosis and Related Bone Diseases www osteo.org 2. International Society for Clinical Densitometry www iscd.org 3. National Osteoporosis Foundation www nof.org Electronically Signed: Uriel Fox MD at 10:51 EDT ,
--- NOTE | 2022-04-05 10:05 | US_ITS ---
STUDY: THYROID ULTRASOUND REASON FOR EXAM: Female, 66 years old. NODULES TECHNIQUE: Ultrasound evaluation of the thyroid was performed with real-time and static pickering-scale imaging. COMPARISON: Thyroid April 04, 2021 March 23, 2020 ultrasound thyroid FINDINGS: RIGHT LOBE: The right lobe of the thyroid gland measures 6.7 x 2.2 x 1.8 cm. On prior study the given measurement was 6.2 x 2.5 x 2.3 cm April 04, 2021. March 23, 2020 the measurement given was 5.7 x 2.5 x 1.6 cm. There is a heterogeneous echotexture. There are multiple right-sided thyroid nodules the largest of which measures 1.5 x 1.5 x 1.0 cm in the lower pole of the right thyroid with solid and cystic components and internal vascularity. LEFT LOBE: The left lobe of the thyroid gland measures 7.1 x 2.6 x 2.6 cm. On the left side the given measurement was 6.5 x 2.5 x 2.4 cm April 04, 2021. March 23, 2020 the measurement was given as 6 x 2.3 x 2 cm There is a heterogeneous echotexture. There is a lobulated enlarged appearance of the left thyroid with increased vascularity. There is a nodule measuring 1.2 x 1.2 x 1.7 cm with vascularity. There is a visualized nodule measuring 1.1 x 0.9 x 1.6 cm. ISTHMUS: The isthmus measures 4.4 mm. There is reduced size of the cystic structure at the level of the isthmus measuring 3 x 4 x 4 mm, smaller than the measured 7 mm cystic structure on the prior study. The regional lymph nodes are normal. US/Thyroid IMPRESSION: Overall Enlarging multinodular thyroid as detailed above since March 23, 2020. There is a smaller cystic structure within the isthmus. The measure Nodules appear very similar in echotexture and measurement. Electronically Signed: Shavonne Cloud MD at 4:50 EDT ,
== END | disposition home or self-care (01) ==
PROVIDERS: PCP Nurse Practitioner; Visit Provider Nurse Practitioner Family
DX: Z12.31 Encounter for screening mammogram for malignant neoplasm of breast (principal); E04.9 Nontoxic goiter, unspecified; Z80.3 Family history of malignant neoplasm of breast; Z78.0 Asymptomatic menopausal state; M85.80 Other specified disorders of bone density and structure, unspecified site
CPT/HCPCS: 76536; 77063; 77067; 77080; G0008

== ENCOUNTER → 2022-06-01 | Outpatient (CLI) | payer MEDICARE, SELFPAY ==
--- NOTE | 2022-06-01 11:04 | US_ITS ---
STUDY: ABDOMINAL ULTRASOUND - RIGHT UPPER QUADRANT REASON FOR VISIT: Female, 66 years old ELEVATE LIVER ENZYMES TECHNIQUE: Ultrasound evaluation of the right upper quadrant was performed with real-time and static pickering-scale imaging. TECHNICAL QUALITY: Adequate. COMPARISON: None. FINDINGS: Liver: The liver measures 18.4 cm. There is increased echogenicity consistent with fatty infiltration. The bile ducts are within normal limits. There is hepatic color flow. The direction of portal flow is hepatopetal. There is no demonstrated mass lesion. Gallbladder: Normal distended gallbladder. The gallbladder wall measures 1 mm. There is a negative sonographic Ruffin''s sign. There is no pericholecystic fluid. There are no gallstones. Common Bile Duct (C.B.D.): The common bile duct measures 5 mm. Pancreas: Normal size of the head, body and tail of the pancreas. There is increased echogenicity of the pancreas. There is no demonstrated pancreatic mass or cyst. Right Kidney: Normal size of the right kidney. The right kidney measures 10.1 x 4.3 x 4.0 cm. Normal renal cortex. The right cortex measures 1.2 cm. There is no demonstrated renal mass or cyst. There is no right hydronephrosis. US/Liver IMPRESSION: Fatty liver, no discrete lesion Nonspecific echogenic pancreas Electronically Signed: Shahid Ga MD at 12:28 EDT ,
== END | disposition home or self-care (01) ==
LOC: US 11:01
PROVIDERS: PCP Nurse Practitioner Family; Referring Provider Nurse Practitioner Family; Visit Provider Nurse Practitioner Family
DX: R74.8 Abnormal levels of other serum enzymes (principal); E04.1 Nontoxic single thyroid nodule
CPT/HCPCS: 76705

== ENCOUNTER → 2022-06-12 | Outpatient (CLI) | payer MEDICARE, SELFPAY ==
--- NOTE | 2022-06-12 13:43 | US_ITS ---
STUDY: ABDOMINAL ULTRASOUND - ELASTOGRAPHY REASON FOR VISIT: Female, 66 years old. Fatty infiltration of the liver. TECHNIQUE: Liver stiffness measurements were obtained on a [employer] RS 85 ultrasound machine using a CA 1-7 probe following the SRU guidelines. 3 measurements were obtained using a 2-D-SWE method. The IQR/M was 19% suggesting a quality data set. TECHNICAL QUALITY: Adequate. COMPARISON: Comparison is made with prior sonogram dated 06/01/2022. FINDINGS: Liver: There is fatty infiltration of the liver. Median liver stiffness measured 9 kPa. US/Elastography Parenchyma/Organ IMPRESSION: Liver stiffness measures 9 kPa compatible with F2-F3 (Mild to moderate liver fibrosis) Metavir score. Electronically Signed: Uriel Fox MD at 10:35 EDT ,
== END | disposition home or self-care (01) ==
PROVIDERS: PCP Nurse Practitioner Family; Referring Provider Surgery; Visit Provider Surgery
DX: K76.0 Fatty (change of) liver, not elsewhere classified (principal)
CPT/HCPCS: 76981

== ENCOUNTER → 2023-02-05 | Outpatient (CLI) | payer MEDICARE, SELFPAY ==
--- NOTE | 2023-02-05 13:08 | US_ITS ---
EXAM: US SOFT TISSUES HEAD AND NECK, THYROID CLINICAL INDICATION: goiter TECHNIQUE: Herndon scale and color doppler imaging was performed of the thyroid gland. COMPARISON: US Thyroid dated 04/05/2022 FINDINGS: LEFT THYROID LOBE: Left thyroid lobe measures 6.3 x 2.5 x 2.5 cm and also demonstrates stable multinodular echotexture not significantly changed from prior study. No thyroid nodules are present. RIGHT THYROID LOBE: Right thyroid lobe measures 6.0 x 2.2 x 2.1 cm. Stable multinodular echo pattern with no dominant or enlarging lesions. No thyroid nodules are present. ISTHMUS: Isthmus measures 9 mm in AP dimension. No thyroid nodules are present. US/Thyroid IMPRESSION: Multinodular goiter without discrete interval change. Electronically Signed: Tim Pool MD at 16:28 EDT ,
== END | disposition home or self-care (01) ==
PROVIDERS: PCP Nurse Practitioner Family; Referring Provider Surgery; Visit Provider Surgery
DX: E04.2 Nontoxic multinodular goiter (principal); E03.9 Hypothyroidism, unspecified
CPT/HCPCS: 76536

== ENCOUNTER → 2023-04-06 | Outpatient (CLI) | payer MEDICARE, SELFPAY ==
--- NOTE | 2023-04-06 09:14 | BI_ITS ---
MAMMOGRAPHY - BILATERAL SCREENING REASON FOR EXAM: Female, 67 years old. Routine annual screening examination. PERTINENT HISTORY: Mother with breast cancer. TECHNIQUE: Digital bilateral breast crescencio (3D mammographic acquisition) in the CC and MLO projections. 2-D mediolateral oblique (MLO) and craniocaudad (CC) views of both breasts were obtained. CAD: Full Field Digital Mammography with Computer Added Detection was performed. COMPARISON: Screening mammogram from 04/05/2022, 04/04/2021. FINDINGS: Breast Composition: There are scattered areas of fibroglandular density. There are no dominant masses or suspicious calcifications. Stable small benign-appearing bilateral axillary lymph nodes. No other significant abnormalities are identified. There has been no significant change since the prior study. BI/SCRN MAMM (CAD)W/CRESCENCIO BILAT IMPRESSION: Stable bilateral screening mammogram. Yearly follow-up mammogram recommended. (A) ASSESSMENT CATEGORY: BIRADS Category 2: Benign. A letter regarding these results will be sent to the patient by the facility within 30 days. Approximately 10% of breast cancers are not detected by mammography. A normal mammogram should not delay biopsy of a clinically suspicious abnormality. Electronically Signed: Juan Carlos Rojas DO at 14:52 EDT ,
== END | disposition home or self-care (01) ==
LOC: OPBI 09:12
PROVIDERS: PCP Nurse Practitioner Family; Referring Provider Nurse Practitioner Family; Visit Provider Nurse Practitioner Family
DX: Z12.31 Encounter for screening mammogram for malignant neoplasm of breast (principal); Z80.3 Family history of malignant neoplasm of breast
CPT/HCPCS: 77063; 77067

== ENCOUNTER → 2024-04-08 | Outpatient (CLI) | payer MEDICARE, SELFPAY ==
--- NOTE | 2024-04-08 09:24 | BI_ITS ---
MAMMOGRAPHY - BILATERAL SCREENING REASON FOR EXAM: Female, 68 years old. Routine annual screening examination. PERTINENT HISTORY: Mother with breast cancer. TECHNIQUE: Digital bilateral breast crescencio (3D mammographic acquisition) in the CC and MLO projections. 2-D mediolateral oblique (MLO) and craniocaudad (CC) views of both breasts were obtained. CAD: Full Field Digital Mammography with Computer Added Detection was performed. COMPARISON: Comparison is made with prior study April 06, 2023 and April 05, 2022. FINDINGS: Breast Composition: There are scattered areas of fibroglandular density. There are no dominant masses or suspicious calcifications. Stable small benign-appearing bilateral axillary nodes. No other significant abnormalities are identified. There has been no significant change since the prior study. BI/SCRN MAMM (CAD)W/CRESCENCIO BILAT IMPRESSION: Stable bilateral screening mammogram. Yearly follow-up mammogram recommended. (A) ASSESSMENT CATEGORY: BIRADS Category 2: Benign. A letter regarding these results will be sent to the patient by the facility within 30 days. Approximately 10% of breast cancers are not detected by mammography. A normal mammogram should not delay biopsy of a clinically suspicious abnormality. [id number] Electronically Signed: Uriel Fox MD at 10:59 EDT ,
--- NOTE | 2024-04-08 09:26 | BD_ITS ---
STUDY: DUAL ENERGY X-RAY ABSORPTIOMETRY / DXA REASON FOR EXAM: Female, 68 years old. Z78.0 -- due in March TECHNIQUE: Bone Mineral Density (BMD) measurements of lumbar spine and bilateral hips were obtained. COMPARISON: Comparison is made with prior study April 05, 2022. FINDINGS: Lumbar Spine (L1-L4): g/cm2 (1.157) / T-score (0.9) / Z-score (3.1) Findings are suggestive of normal bone density with a low fracture risk. Left Femur Total: g/cm2 (1.018) / T-score (0.6) / Z-score (2.1) Left Femoral Neck: g/cm2 (0.822) / T-score (-0.2) / Z-score (1.5) Right Femur Total: g/cm2 (1.006) / T-score (0.5) / Z-score (2.0) Right Femoral Neck: g/cm2 (0.850) / T-score (0.0) / Z-score (1.8) The T-Scores on the most recent prior examination were: Lumbar Spine (L1-L4): There has been improvement of bone density since the previous examination. Left Femur Total: which represents an improvement of 4.5%. Right Femur Total: which represents a worsening of 0.3%. BD/Dexa Bone Density Study IMPRESSION: The patient is considered normal as outlined below according to World [employer] Organization (WHO) criteria with a low fracture risk. There has been improvement of bone density since the previous examination. Reference Information: The T-score is the number of standard deviations above or below the standard which is normal for young adults at their peak bone mineral density. The World Health Organization (WHO) interprets the T-scores as follows: Above -1 Normal bone density Between -1 and -2.5 Osteopenia Equal to / or below -2.5 Osteoporosis As a practical clinical guideline, osteopenia may be graded as follows: Mild -1 through -1.5 Moderate -1.6 through -2.0 Severe -2.1 through -2.4 The Z-score is the number of standard deviations above or below age-matched controls. A Z-score of less than -1.5 would be considered abnormal. References: 1. NIH Osteoporosis and Related Bone Diseases www osteo.org 2. International Society for Clinical Densitometry www iscd.org 3. National Osteoporosis Foundation www nof.org Electronically Signed: Uriel Fox MD at 15:24 EDT ,
== END | disposition home or self-care (01) ==
LOC: OPBD 09:22
PROVIDERS: PCP Nurse Practitioner Family; Referring Provider Nurse Practitioner Family; Visit Provider Nurse Practitioner Family
DX: Z12.31 Encounter for screening mammogram for malignant neoplasm of breast (principal); Z80.3 Family history of malignant neoplasm of breast; Z78.0 Asymptomatic menopausal state
CPT/HCPCS: 77063; 77067; 77080

== ENCOUNTER → 2025-04-09 | Outpatient (CLI) | payer MEDICARE, SELFPAY ==
--- NOTE | 2025-04-09 08:40 | BI_ITS ---
EXAM: SCRN MAMM (CAD)W/CRESCENCIO BILAT DATE: 04/09/2025 CLINICAL HISTORY: F, Age 69 y/o , BREAST CANCER SCREENING Mother with breast cancer. TECHNIQUE: SCRN MAMM (CAD)W/CRESCENCIO BILAT COMPARISON: Prior exam(s) dated April 08, 2024.. FINDINGS: TISSUE DENSITY: There are scattered areas of fibroglandular density. Bilateral Breast Mammographic Findings: No significant masses, calcifications or other abnormalities are identified. Stable benign-appearing bilateral axillary lymph nodes. No suspicious masses, areas of developing architectural distortion, or suspicious calcifications. There has been no significant interval change. BI/SCRN MAMM (CAD)W/CRESCENCIO BILAT IMPRESSION: Stable examination. OVERALL FINAL ASSESSMENT BI-RADS 2: BENIGN RECOMMENDATION: Routine annual follow-up in 1 Year A letter with findings and recommendations will be mailed to the patient. Reading Location: [id number]
== END | disposition home or self-care (01) ==
LOC: OPBI 08:39
PROVIDERS: PCP Nurse Practitioner Family; Referring Provider Nurse Practitioner Family; Visit Provider Nurse Practitioner Family
DX: Z12.31 Encounter for screening mammogram for malignant neoplasm of breast (principal); Z80.3 Family history of malignant neoplasm of breast
CPT/HCPCS: 77063; 77067